=== PATIENT | male | born 1975 | race Caucasian/White ===

== ENCOUNTER 2016-07-23 20:33 | Emergency (ER) | payer OTHER ==
[~2016-07-23 20:33] MED LIST: BAYER ASPIRIN E81 M1 PO; LANTUS SOL100 UNITS/; NITROSTAT0.4 MG SL; NOVOLOG PE100 UNITS/ SC; OMEPRAZOLE20 MG PO; TOPROL XL50 MG PO
--- NOTE | 2016-07-23 23:08 | ED CLINICAL REPORT ---
Clinical Report - Physicians/Mid Levels [facility] [address] [place] [address] 07/23/2016 20:33 Patient: TESSIE CONRAD Time Seen: 22:13; initial patient contact, initial documentation, patient care assumed. Arrived- By private vehicle. Historian- patient. RETURN VISIT: recently seen in this ED by me. Seen now for the same problem as before. HISTORY OF PRESENT ILLNESS Chief Complaint: COUGH, SORE THROAT and SINUS PAIN. This started about 1 months ago and is still present. The illness is described as moderate. The patient has had a cough, a sore throat, nasal congestion, sinus pressure and sinus drainage. He has had a nasal discharge and ear pain. No fever. Additional history - No known contact with a sick individual. No recent travel. Similar symptoms previously: None. Recent medical care: The patient was seen recently at this facility in the emergency department. ( txed here by me, 07/16, dx bronchitis, took zpack, no better, no f/u). REVIEW OF SYSTEMS No vomiting or diarrhea. All systems otherwise negative, except as recorded above. PAST HISTORY See nurses notes. PROBLEMS: Asthma. Unstable Angina. Influenza. URI. Depression. Sinusitis. Gastroesophageal Reflux. Diabetes Mellitus. --21:50 Aleks Kirby, RJozefN. ADDITIONAL SURGERIES: Skin growth removed on scalp. --21:50 Aleks Kirby R.N. SOCIAL HISTORY Heavy tobacco smoker. Occasional alcohol use. History of occasional drug use: marijuana. No recent travel. Is a local resident. FAMILY HISTORY Negative. ADDITIONAL NOTES The nursing notes have been reviewed with agreement regarding the chief complaint, HPI, ROS, PMH and patient medications and allergies. PHYSICAL EXAM Vital Signs: 07/23/2016 21:45 BP: 127/75. HR: 85. RR: 21. O2 saturation: 99%. Temp: 97.8 F. Pain level now: 9/10. Have been reviewed as normal and appear to be correct. Blood pressure normal. Heart rate normal. Respiratory rate normal. Temperature normal. Oxygen saturation normal. Appearance: Alert. No acute distress. Eyes: Pupils equal, round and reactive to light. Eyes normal inspection. ENT: Ears normal. Nose normal. Pharynx normal. Uvula midline. Neck: Normal inspection. Neck supple. CVS: Normal heart rate and rhythm. Heart sounds normal. Pulses normal. Respiratory: No respiratory distress. Breath sounds normal. Back: Normal inspection. Skin: Skin warm and dry. Normal skin color. No rash. Normal skin turgor. Extremities: Extremities exhibit normal ROM. No lower extremity edema. Neuro: Oriented X 3. No motor deficit. No sensory deficit. LABS, X-RAYS, AND EKG Chest X-ray: Normal Chest X-Ray. (and reviewed by dr brewer). The X-rays were interpreted contemporaneously by me. Laboratory Tests: Rapid Influenza Screen: (CLAUDIA: 07/23/2016 22:25) ( [id number] 07/23/2016 22:59) Final results SPECIMEN DESCRIPTION: NOSE Test Result Flag Units (Reference) RAPID INFLUENZA SCREEN CALLED TO: NA -- DATE: 07/23/16 INFLUENZA A: NEGATIVE SCREEN FOR INFLUENZA A INFLUENZA B: NEGATIVE SCREEN FOR INFLUENZA B . PROGRESS AND PROCEDURES Patient counseled in person regarding the patient's stable condition, test results, normal exam, normal evaluation and diagnosis. 23:08. Differential Diagnosis: Other possible considerations: flu, allergies, uri, sinusitis, bronchitis, pneumonia. Above considerations are based on history, physical exam, laboratory data and X-Ray data. Differential diagnosis was discussed with patient. Disposition: Discharged home in good and unchanged condition (23:08). Condition: good and stable. CLINICAL IMPRESSION Acute sinusitis. INSTRUCTIONS Drink plenty of fluids for the next 24 hours until better. Do not smoke. Warnings: GENERAL WARNINGS: Return or contact your physician immediately if your condition worsens or changes unexpectedly, if not improving as expected, or if other problems arise. Specifically return if problem worsens. Follow-up: Follow up with your doctor in about three days as needed. Call for an appointment. Summary of care provided to patient. Understanding of the discharge instructions verbalized by patient. (Electronically signed by Steff Fish A.R.N.P. 07/24/2016 11:54)
--- NOTE | 2016-07-23 23:09 | ED ORDER SUMMARY ---
..... Patient: TESSIE CONRAD OrderSheet [facility] VisitID: [id number] [address] [place] [address] 41y, M Registration Date/Time: 07/23/2016 ORDER SHEET Weight: 99.7 kg (stated) Allergies: Penicillins GENERAL ORDERS: Rapid Influenza Screen (Nasal Pharyngeal) (nose) Urgent (22:27 07/23/2016 HBivens A.R.N.P.) (Ack 22:29 LTapper) (23:04 Tosha R.N.) Chest 2V Urgent (22:41 07/23/2016 HBivens A.R.N.P.) (Ack 22:49 [facility] Electronic Engraver) (22:51 [facility]) Culture, Strep Screen Urgent (22:59 07/23/2016 [facility] Electronic Engraver verbal order read back to HBivens A.R.N.P.) (Cancelled: Other23:01 [facility] Electronic Engraver) MEDICATION ORDERS: IV FLUIDS: ORDER SHEET NOTES: [Electronically signed by Amie Dallas R.N. (23:34 07/23/2016)] [Electronically signed by Steff Fish.R.N.P. (11:54 07/24/2016)] [Electronically locked/signed by Amie Dallas R.N. (23:34 07/23/2016)]
--- NOTE | 2016-07-23 23:09 | ED NURSING NOTES ---
Clinical Report - Nurses [facility] [address] [place] [address] 07/23/2016 20:33 Patient: TESSIE CONRAD TRIAGE Triage time 21:45. Acuity: LEVEL 4. Chief Complaint: NASAL CONGESTION and COUGH (Sinus pain). 21:50. Alert. SEPSIS SCREEN: Sepsis Screen. Negative (no infection suspected/documented). JADE COMA SCORE: [place] Coma Scale: 15- eyes open spontaneously (4); best verbal response- oriented x 4 (5); best motor response- obeys commands (6). --21:50 Aleks Kirby R.N. 21:45 07/23/16. BP: 127/75. HR: 85. RR: 21. O2 saturation: 99%. Temp: 97.8 F (oral). Pain level now: 03/27. --21:50 Aleks Kirby R.N. Weight: 99.7 kg stated. Height/Length: 73 inches Per Patient. BMI: 29. --21:47 Aleks Kirby R.N. Medications Insulin Lantus Sliding Scale--40 Units. INSULIN NOVOLOG per sliding scale. --21:49 Aleks Kirby R.N. Omeprazole Oral 20 mg, daily. --21:49 Aleks Kirby R.N. Albuterol Sulfate Inhalation 2 puffs. --21:49 Aleks Kirby R.N. Allergies Penicillins. Definite Moderate(rash) --21:49 Aleks Kirby R.N. Medication/allergy information source: the patient. --21:51 Aleks Kirby R.N. History Arrived by private vehicle. Historian: patient. Onset. (1 months ago). ( Patient states he was seen here before for the same thing, has finished a Z-pack and is using an inhaler, not getting better). Treatment IT COMPLIANCE MANAGER: None. PAST MEDICAL HX: Last normal menstrual period now. SOCIAL HX: Current every day heavy tobacco smoker- less than 1 pack per day. History of occasional drug use: marijuana. No alcohol use. No infectious disease exposure. ABUSE ASSESSMENT: No report of abuse. FALL RISK ASSESSMENT: Fall risk assessment completed. No fall risk identified. NUTRITIONAL RISK ASSESSMENT: The nutritional risk assessment revealed no deficiencies. FUNCTIONAL ASSESSMENT: Functional assessment: no impairments noted. LEARNING NEEDS ASSESSMENT: The learning needs assessment revealed no barriers. SKIN INTEGRITY ASSESSMENT: Skin integrity risk assessment completed. No skin integrity risk identified. --21:50 Aleks Kirby R.N. PROBLEMS: Asthma. Unstable Angina. Influenza. URI. Depression. Sinusitis. Gastroesophageal Reflux. Diabetes Mellitus. --21:50 Aleks Kirby R.N. ADDITIONAL SURGERIES: Skin growth removed on scalp. --21:50 Aleks Kirby R.N. Interventions ID band on patient. To treatment room. --21:50 Aleks Kirby R.N. PHYSICAL ASSESSMENT Ambulatory to room. GENERAL / NEURO / PSYCH: Alert. Oriented X 4. RESPIRATORY: Cough (for over a month). ( "Sinuses are plugged"). GI / : Abdomen soft and nontender. SKIN: Skin intact. Skin is warm and dry. Normal skin turgor. --22:14 Aleks Julio R.N. NURSING PROGRESS NOTES Patient gowned. Reassurance given. Patient identifiers checked. Call light placed in reach. Side rails up x 1. Patient ready for evaluation- chart flagged and ED physician notified. --22:14 Aleks Julio R.N. 22:25. Checked patient name, birthdate and medical record number: patient confirmed. Flu swab obtained by RN via nasal pharyngeal swab. Labeled in the presence of the patient and sent to lab. Patient ID band checked for patient name, birthdate and medical record number: patient confirmed. Throat swab obtained for rapid strep; labeled in the presence of the patient and sent to lab. --23:06 Aleks Julio R.N. Care transferred and report received (from Aleks Cummins, RN). --23:07 Amie Dallas R.N. DISPOSITION / DISCHARGE Departure time: 2316. Condition at departure: unchanged. No learning barriers present. Discharge instructions provided and reviewed with the patient. Patient verbalized understanding. Written instructions provided in Belarusian. The patient was discharged by the nurse practitioner. He was discharged home and accompanied by family. He left the Emergency Department ambulatory and via private vehicle. Patient driving. Medication list reviewed and validated with the patient. --23:34 Amie Dallas R.N. 23:17 07/23/16. BP: deferred. HR: deferred. RR: deferred. O2 saturation: deferred. Temp: deferred. Pain level now deferred. --23:34 Amie Dallas R.N. Locked/Released at 07/23/2016 23:34 by Amie Dallas R.N.
--- NOTE | 2016-07-23 23:09 | ED ORDER SUMMARY ---
..... Patient: TESSIE CONRAD OrderSheet [facility] VisitID: [id number] [address] [place] [address] 41y, M Registration Date/Time: 07/23/2016 ORDER SHEET Weight: 99.7 kg (stated) Allergies: Penicillins GENERAL ORDERS: Rapid Influenza Screen (Nasal Pharyngeal) (nose) Urgent (22:27 07/23/2016 HBivens A.R.N.P.) (Ack 22:29 LTapper) (23:04 Tosha R.N.) Chest 2V Urgent (22:41 07/23/2016 HBivens A.R.N.P.) (Ack 22:49 [facility] ER Director Financial Planning) (22:51 [facility]) Culture, Strep Screen Urgent (22:59 07/23/2016 [facility] ER Director Financial Planning verbal order read back to HBivens A.R.N.P.) (Cancelled: Other23:01 [facility] ER Director Financial Planning) MEDICATION ORDERS: IV FLUIDS: ORDER SHEET NOTES: [Electronically signed by Amie Dallas R.N. (23:34 07/23/2016)] [Electronically signed by Steff Fish.R.N.P. (11:54 07/24/2016)] [Electronically locked/signed by Amie Dallas R.N. (23:34 07/23/2016)]
--- NOTE | 2016-07-23 23:09 | ED NURSING NOTES ---
Clinical Report - Nurses [facility] [address] [place] [address] 07/23/2016 20:33 Patient: TESSIE CONRAD TRIAGE Triage time 21:45. Acuity: LEVEL 4. Chief Complaint: NASAL CONGESTION and COUGH (Sinus pain). 21:50. Alert. SEPSIS SCREEN: Sepsis Screen. Negative (no infection suspected/documented). JADE COMA SCORE: [place] Coma Scale: 15- eyes open spontaneously (4); best verbal response- oriented x 4 (5); best motor response- obeys commands (6). --21:50 Aleks Kirby R.N. 21:45 07/23/16. BP: 127/75. HR: 85. RR: 21. O2 saturation: 99%. Temp: 97.8 F (oral). Pain level now: 03/27. --21:50 Aleks Kirby R.N. Weight: 99.7 kg stated. Height/Length: 73 inches Per Patient. BMI: 29. --21:47 Aleks Kirby R.N. Medications Insulin Lantus Sliding Scale--40 Units. INSULIN NOVOLOG per sliding scale. --21:49 Aleks Kirby R.N. Omeprazole Oral 20 mg, daily. --21:49 Aleks Kirby R.N. Albuterol Sulfate Inhalation 2 puffs. --21:49 Aleks Kirby R.N. Allergies Penicillins. Definite Moderate(rash) --21:49 Aleks Kirby R.N. Medication/allergy information source: the patient. --21:51 Aleks Kirby R.N. History Arrived by private vehicle. Historian: patient. Onset. (1 months ago). ( Patient states he was seen here before for the same thing, has finished a Z-pack and is using an inhaler, not getting better). Treatment KETTLE COORDINATOR: None. PAST MEDICAL HX: Last normal menstrual period now. SOCIAL HX: Current every day heavy tobacco smoker- less than 1 pack per day. History of occasional drug use: marijuana. No alcohol use. No infectious disease exposure. ABUSE ASSESSMENT: No report of abuse. FALL RISK ASSESSMENT: Fall risk assessment completed. No fall risk identified. NUTRITIONAL RISK ASSESSMENT: The nutritional risk assessment revealed no deficiencies. FUNCTIONAL ASSESSMENT: Functional assessment: no impairments noted. LEARNING NEEDS ASSESSMENT: The learning needs assessment revealed no barriers. SKIN INTEGRITY ASSESSMENT: Skin integrity risk assessment completed. No skin integrity risk identified. --21:50 Aleks Kirby R.N. PROBLEMS: Asthma. Unstable Angina. Influenza. URI. Depression. Sinusitis. Gastroesophageal Reflux. Diabetes Mellitus. --21:50 Aleks Kirby R.N. ADDITIONAL SURGERIES: Skin growth removed on scalp. --21:50 Aleks Kirby R.N. Interventions ID band on patient. To treatment room. --21:50 Aleks Kirby R.N. PHYSICAL ASSESSMENT Ambulatory to room. GENERAL / NEURO / PSYCH: Alert. Oriented X 4. RESPIRATORY: Cough (for over a month). ( "Sinuses are plugged"). GI / : Abdomen soft and nontender. SKIN: Skin intact. Skin is warm and dry. Normal skin turgor. --22:14 Aleks Julio R.N. NURSING PROGRESS NOTES Patient gowned. Reassurance given. Patient identifiers checked. Call light placed in reach. Side rails up x 1. Patient ready for evaluation- chart flagged and ED physician notified. --22:14 Aleks Julio R.N. 22:25. Checked patient name, birthdate and medical record number: patient confirmed. Flu swab obtained by RN via nasal pharyngeal swab. Labeled in the presence of the patient and sent to lab. Patient ID band checked for patient name, birthdate and medical record number: patient confirmed. Throat swab obtained for rapid strep; labeled in the presence of the patient and sent to lab. --23:06 Aleks Julio R.N. Care transferred and report received (from Aleks Cummins, RN). --23:07 Amie Dallas R.N. DISPOSITION / DISCHARGE Departure time: 2316. Condition at departure: unchanged. No learning barriers present. Discharge instructions provided and reviewed with the patient. Patient verbalized understanding. Written instructions provided in Slovak. The patient was discharged by the nurse practitioner. He was discharged home and accompanied by family. He left the Emergency Department ambulatory and via private vehicle. Patient driving. Medication list reviewed and validated with the patient. --23:34 Amie Dallas R.N. 23:17 07/23/16. BP: deferred. HR: deferred. RR: deferred. O2 saturation: deferred. Temp: deferred. Pain level now deferred. --23:34 Amie Dallas R.N. Locked/Released at 07/23/2016 23:34 by Amie Dallas R.N.
--- NOTE | 2016-07-23 23:37 | DIAGNOSTIC IMAGING REPORT ---
PROCEDURE: XR CHEST 2 VIEW INDICATION: COUGH TECHNIQUE: PA and lateral views. COMPARISON: Para chest x-ray 05/20/2015. FINDINGS: Lungs are clear. Heart and mediastinum are normal. Thorax is normal. IMPRESSION: 1. Negative chest.
--- NOTE | 2016-07-24 11:55 | ED DISCHARGE INSTRUCTIONS ---
Patient: TESSIE CONRAD General Instructions [facility] VisitID: [id number] [place] [address] 41y, M Registration Date/Time: 07/23/2016 Acute sinusitis. INSTRUCTIONS Drink plenty of fluids for the next 24 hours until better. Do not smoke. Warnings: GENERAL WARNINGS: Return or contact your physician immediately if your condition worsens or changes unexpectedly, if not improving as expected, or if other problems arise. Specifically return if problem worsens. Follow-up: Follow up with your doctor in about three days as needed. Call for an appointment. Summary of care provided to patient. Understanding of the discharge instructions verbalized by patient. ADDITIONAL INFORMATION Viral Respiratory Illness [Adult] You have an Upper Respiratory Illness (URI) caused by a virus. This illness is contagious during the first few days. It is spread through the air by coughing and sneezing or by direct contact (touching the sick person and then touching your own eyes, nose or mouth). Most viral illnesses go away within 7-10 days with rest and simple home remedies. Sometimes, the illness may last for several weeks. Antibiotics will not kill a virus and are generally not prescribed for this condition. Home Care: 1) If symptoms are severe, rest at home for the first 2-3 days. When you resume activity, don't let yourself get too tired. 2) Avoid being exposed to cigarette smoke (yours or others). 3) Tylenol (acetaminophen) or ibuprofen (Advil, Motrin) will help fever, muscle aching and headache. (Persons under 18 with fever should not take aspirin since this may cause liver damage.) 4) Your appetite may be poor, so a light diet is fine. Avoid dehydration by drinking 6-8 glasses of fluids per day (water, soft drinks, juices, tea, soup). Extra fluids will help loosen secretions in the nose and lungs. 5) Gvln-gme-tmrsnnb cold medicines will not shorten the length of time youre sick, but they may be helpful for the following symptoms: cough (Robitussin DM); sore throat (Chloraseptic lozenges or spray); nasal and sinus congestion (Actifed, Sudafed, Chlortrimeton). Follow Up with your doctor or as advised if you dont improve over the next week. Get Prompt Medical Attention if any of the following occur: -- Cough with lots of colored sputum (mucus) or blood in your sputum -- Chest pain, shortness of breath, wheezing or have trouble breathing -- Severe headache; face, neck or ear pain -- Fever over 100.4 F (38.0 C) for more than three days -- You cant swallow due to throat pain You have been given the following additional information: Uri, Viral, No Abx (Adult) (Electronically signed by Steff Fish A.R.N.P. 07/24/2016 11:54)
--- NOTE | 2016-07-24 11:55 | ED MAR SUMMARY ---
..... Medication Administration Record [facility] [address], [place] [id number] Patient: TESSIE CONRAD Visit ID: [id number] 41y, M Weight: 99.7 kg Height/Length: 73 in BMI: 29 ALLERGIES: Penicillins
--- NOTE | 2016-07-24 11:55 | ED MED RECONCILIATION SUMMARY ---
Patient: TESSIE CONRAD Medication Reconciliation Report [facility] VisitID: [id number] [address] [place] [address] 41y, M Registration Date/Time: 07/23/2016 Weight: 99.7 kg Height/Length: 73 in. BMI: 29.0 ALLERGIES: Penicillins The patient's Home Medications are listed below: THE FOLLOWING MEDICATIONS NEED TO BE RECONCILED: Albuterol Sulfate Inhalation 2 puffs Insulin Lantus Sliding Scale--40 Units INSULIN NOVOLOG per sliding scale Omeprazole Oral 20 mg, daily The source(s) of the original Home Medication information: patient The following Medications were given to the patient in the Emergency Department: None. The following Medications were prescribed to the patient: None.
--- NOTE | 2016-07-24 11:55 | ED MAR SUMMARY ---
..... Medication Administration Record [facility] [address] [place], [place] [id number] Patient: TESSIE CONRAD Visit ID: [id number] 41y, M Weight: 99.7 kg Height/Length: 73 in BMI: 29 ALLERGIES: Penicillins
--- NOTE | 2016-07-24 11:55 | ED MED RECONCILIATION SUMMARY ---
Patient: TESSIE CONRAD Medication Reconciliation Report [facility] VisitID: [id number] [address] [place] [address] 41y, M Registration Date/Time: 07/23/2016 Weight: 99.7 kg Height/Length: 73 in. BMI: 29.0 ALLERGIES: Penicillins The patient's Home Medications are listed below: THE FOLLOWING MEDICATIONS NEED TO BE RECONCILED: Albuterol Sulfate Inhalation 2 puffs Insulin Lantus Sliding Scale--40 Units INSULIN NOVOLOG per sliding scale Omeprazole Oral 20 mg, daily The source(s) of the original Home Medication information: patient The following Medications were given to the patient in the Emergency Department: None. The following Medications were prescribed to the patient: None.
== END 2016-07-23 23:17 | disposition home or self-care (01) ==
LOC: ED SRH 20:33
DX: J01.90 Acute sinusitis, unspecified (principal); K21.9 Gastro-esophageal reflux disease without esophagitis; J45.909 Unspecified asthma, uncomplicated; E11.9 Type 2 diabetes mellitus without complications; Z79.4 Long term (current) use of insulin; Z79.51 Long term (current) use of inhaled steroids; Z79.899 Other long term (current) drug therapy; F17.210 Nicotine dependence, cigarettes, uncomplicated; Z88.0 Allergy status to penicillin
CPT/HCPCS: 91400

== ENCOUNTER 2016-07-30 05:39 | Emergency (ER) | payer OTHER ==
--- NOTE | 2016-07-30 07:17 | ED CLINICAL REPORT ---
Clinical Report - Physicians/Mid Levels [facility] [address] [place] [address] 07/30/2016 5:39 Patient: TESSIE CONRAD Time Seen: 06:00. Arrived- By private vehicle. Historian- patient. HISTORY OF PRESENT ILLNESS Chief Complaint: VOMITING. This started several days ago; vomits at the end of coughing episodes and is still present. The patient has had vomiting (12 times yesterday). He has had diarrhea and contact with a sick individual. No black stools, bloody stools, flank pain or history of possible bad food exposure. Last bowel movement: recently. (Last BM yesterday - diarrhea x 10 times. Family member ill with GI symptoms Using albuterol 1 puff,). Recent medical care: The patient was seen recently by a health care provider. ( 7 visits). REVIEW OF SYSTEMS No fever, difficulty with urination, chest pain, difficulty breathing or excessive urination. No skin rash. He has had a headache (sinus tenderness). He has had a moderate nonproductive cough. PAST HISTORY PCP: CHRIS Davis Ops: None Hosp; [place] 2013 Illness: CAD, Asthma,. SOCIAL HISTORY Current every day smoker. ADDITIONAL NOTES The nursing notes have been reviewed. PHYSICAL EXAM Vital Signs: 07/30/2016 07:43 BP: 119/67. HR: 87. RR: 18. O2 saturation: 97%. Temp: 98.9 F. Pain level now: 0/10. 07/30/2016 05:45 BP: 133/84. HR: 78. RR: 18. O2 saturation: 99%. Temp: 98 F. Appearance: Alert. No acute distress. (With moderate coughing epidodes). Eyes: Eyes normal inspection. ENT: Pharynx normal. (Mild diffuse sinus tenderness). Neck: Normal inspection. CVS: Heart sounds normal. Respiratory: No respiratory distress. Moderate bilateral wheezes diffusely. No accessory muscle use or decreased air movement. Abdomen: Soft and nontender. Back: Normal inspection. Skin: Skin warm and dry. No rash. Extremities: Extremities exhibit normal ROM. No lower extremity edema. Neuro: No alteration in mental status. PROGRESS AND PROCEDURES Course of Care: Following prednisone, albuterol HHN x 2 and Zofran he feels much better. His coughing is less and his vomiting has stopped. He is still moderately wheezy. His vomiting is made worse but coughing but since he has diarrhea he also could have an element of gastroenteritis. His sinus symptoms are pressure related rather than bacterial infection related. Disposition: Discharged. Condition: stable. CLINICAL IMPRESSION Bronchitis. Asthma with an acute exacerbation. INSTRUCTIONS (INHALER INSTRUCTIONS [given] SINUS PRESSURE AFRIN NASAL SPRAY X 3 DAYS, SUDAFED X 10, POSSIBLY NASAL STEROID THIS COUGH COULD CONTINUE FOR 6 WEEKS.). Prescription Medications: Zofran 4 mg: Take 1 orally every six hours as needed for nausea/vomiting. Dispense ten (10). No refills. Substitution is permissible. Albuterol HFA oral inhaler: inhale 4 puffs via spacer every 4 hours as needed. No refill. Nasacort nasal spray: 2 sprays in each nostril once daily as needed for allergies. Dispense one (1) unit. No refills. Substitution is permissible. PHARMACIST MY SUBSTITUTE EQUIVALENT FOR NASACORT. Follow-up: Follow up with your doctor in seven days if not better. Understanding of the discharge instructions verbalized by patient and family. (Electronically signed by Arash Valenzuela MD 08/01/2016 23:14)
--- NOTE | 2016-07-30 07:17 | ED ORDER SUMMARY ---
..... Patient: TESSIE CONRAD OrderSheet [facility] VisitID: [id number] [address] [place] [address] 41y, M Registration Date/Time: 07/30/2016 ORDER SHEET Weight: 99.7 kg Allergies: Penicillins GENERAL ORDERS: - (GATORAIDE) (06:07 07/30/2016 Sabrina ALVAREZ) (6:35 DBeyer R.N.) MEDICATION ORDERS: Albuterol Neb Tx 5 mg (HHN) (06:06 07/30/2016 Sabrina ALVAREZ) (Ack 6:08 CHagerty ER [place]) (6:59 [facility]ty ER [place]) Prednisone PO 40 mg (NOW) (06:06 07/30/2016 Sabrina ALVAREZ) (6:22 DBeyer R.N.) Zofran ODT PO 4 mg (NOW) (06:07 07/30/2016 Sabrina ALVAREZ) (6:22 DBeyer R.N.) Albuterol Neb Tx 1 unit dose (NOW) (06:51 07/30/2016 DBeyer R.N. verbal order read back to Sabrina ALVAREZ) (6:59 [facility]ty ER [place]) IV FLUIDS: ORDER SHEET NOTES: [Electronically signed by Arina Leon R.N. (07:48 07/30/2016)] [Electronically signed by Arash Valenzuela MD (23:14 08/01/2016)] [Electronically locked/signed by Arina Leon R.N. (07:48 07/30/2016)]
--- NOTE | 2016-07-30 07:17 | ED CLINICAL REPORT ---
Clinical Report - Physicians/Mid Levels Formerly [facility] [address] [place] [address] 07/30/2016 5:39 Patient: TESSIE CONRAD Time Seen: 06:00. Arrived- By private vehicle. Historian- patient. HISTORY OF PRESENT ILLNESS Chief Complaint: VOMITING. This started several days ago; vomits at the end of coughing episodes and is still present. The patient has had vomiting (12 times yesterday). He has had diarrhea and contact with a sick individual. No black stools, bloody stools, flank pain or history of possible bad food exposure. Last bowel movement: recently. (Last BM yesterday - diarrhea x 10 times. Family member ill with GI symptoms Using albuterol 1 puff,). Recent medical care: The patient was seen recently by a health care provider. ( 7 visits). REVIEW OF SYSTEMS No fever, difficulty with urination, chest pain, difficulty breathing or excessive urination. No skin rash. He has had a headache (sinus tenderness). He has had a moderate nonproductive cough. PAST HISTORY PCP: CHRIS Davis Ops: None Hosp; [place] 2013 Illness: CAD, Asthma,. SOCIAL HISTORY Current every day smoker. ADDITIONAL NOTES The nursing notes have been reviewed. PHYSICAL EXAM Vital Signs: 07/30/2016 07:43 BP: 119/67. HR: 87. RR: 18. O2 saturation: 97%. Temp: 98.9 F. Pain level now: 0/10. 07/30/2016 05:45 BP: 133/84. HR: 78. RR: 18. O2 saturation: 99%. Temp: 98 F. Appearance: Alert. No acute distress. (With moderate coughing epidodes). Eyes: Eyes normal inspection. ENT: Pharynx normal. (Mild diffuse sinus tenderness). Neck: Normal inspection. CVS: Heart sounds normal. Respiratory: No respiratory distress. Moderate bilateral wheezes diffusely. No accessory muscle use or decreased air movement. Abdomen: Soft and nontender. Back: Normal inspection. Skin: Skin warm and dry. No rash. Extremities: Extremities exhibit normal ROM. No lower extremity edema. Neuro: No alteration in mental status. PROGRESS AND PROCEDURES Course of Care: Following prednisone, albuterol HHN x 2 and Zofran he feels much better. His coughing is less and his vomiting has stopped. He is still moderately wheezy. His vomiting is made worse but coughing but since he has diarrhea he also could have an element of gastroenteritis. His sinus symptoms are pressure related rather than bacterial infection related. Disposition: Discharged. Condition: stable. CLINICAL IMPRESSION Bronchitis. Asthma with an acute exacerbation. INSTRUCTIONS (INHALER INSTRUCTIONS [given] SINUS PRESSURE AFRIN NASAL SPRAY X 3 DAYS, SUDAFED X 10, POSSIBLY NASAL STEROID THIS COUGH COULD CONTINUE FOR 6 WEEKS.). Prescription Medications: Zofran 4 mg: Take 1 orally every six hours as needed for nausea/vomiting. Dispense ten (10). No refills. Substitution is permissible. Albuterol HFA oral inhaler: inhale 4 puffs via spacer every 4 hours as needed. No refill. Nasacort nasal spray: 2 sprays in each nostril once daily as needed for allergies. Dispense one (1) unit. No refills. Substitution is permissible. PHARMACIST MY SUBSTITUTE EQUIVALENT FOR NASACORT. Follow-up: Follow up with your doctor in seven days if not better. Understanding of the discharge instructions verbalized by patient and family. (Electronically signed by Arash Valenzuela MD 08/01/2016 23:14)
--- NOTE | 2016-07-30 07:17 | ED NURSING NOTES ---
Clinical Report - Nurses [facility] [address] [place] [address] 07/30/2016 5:39 [id number] Triage time 05:45 Jul 30 2016. Acuity: LEVEL 4. Chief Complaint: CHILLS and MUSCLE ACHES. --05:48 Richar Middleton R.N. 05:45 07/30/16. BP: 133/84. HR: 78. RR: 18. O2 saturation: 99%. Temp: 98 F. Pain level now 0/10. --05:48 Richar Middleton R.N. Weight: 99.7 kg. Height/Length: 73 inches. BMI: 29. --05:46 Richar Middleton R.N. Medications Albuterol Sulfate Inhalation 2 puffs. Insulin Lantus Sliding Scale--40 Units. INSULIN NOVOLOG per sliding scale. Omeprazole Oral 20 mg, daily. --05:46 Richar Middleton R.N. Allergies Penicillins. Definite Moderate(rash) --05:46 Richar Middleton R.N. History Onset. (1 months). He has had weakness and a cough. Treatment MATERIAL LISTER: None. --05:48 Richar Middleton R.N. PAST MEDICAL HX: Diabetes mellitus. SOCIAL HX: Heavy tobacco smoker. No alcohol use or drug use. --05:48 Richar Middleton R.N. PROBLEMS: Skin Rash. Bronchospasm. Asthma. Bronchitis. Heart attack. Chest Pain. Unstable Angina. Tendonitis. Influenza. URI. Depression. Dental Pain. Tinea Corporis. Back Pain. Gastroesophageal Reflux. Tetanus Status. Acid reflex. Diabetes Mellitus. Immunizations. --05:48 Richar Middleton R.N. Assessment The patient states feels the same. --05:48 Richar Middleton R.N. Interventions ID and allergy band on patient. --05:48 Richar Middleton R.N. PHYSICAL ASSESSMENT GENERAL / NEURO / PSYCH: Alert. Oriented X 4. Appears in no acute distress. HEENT: Pupils equal, round and reactive to light. No facial asymmetry noted. Mucous membranes are pink. RESPIRATORY: Respirations not labored. Crackles present. GI / : ( emesis). Abdomen soft. SKIN: Skin is warm and dry. --05:49 Richar Middleton R.N. NURSING PROGRESS NOTES 06:22 07/30/2016 Prednisone PO 40 mg given. Allergies verified and confirmed 5 rights. --06:22 Richar Middleton R.N. 06:22 07/30/2016 Zofran ODT (Ondansetron) PO 4 mg given. Allergies verified and confirmed 5 rights. --06:22 Richar Middleton R.N. 06:33 07/30/2016 Albuterol Neb TX Nebulizer 1 unit dose given. Given by the respiratory therapist. Allergies verified and confirmed 5 rights. --06:59 Florentin Guillermo, ER Ginner 06:59 07/30/2016 Albuterol Neb TX Nebulizer 1 unit dose given. Given by the respiratory therapist. Allergies verified and confirmed 5 rights. --06:59 Florentin Guillermo, ER Ginner Care transferred and report given (report to arina). --07:00 Richar Middleton R.N. Monitoring of patient in place. Patient gowned. Reassurance given. Two patient identifiers checked. Side rails up x 1. Bed placed in lowest position. --07:01 Richar Middleton R.N. ( Pt given a second neb tx, pt is alert and oriented x 4). --07:01 Richar Middletno R.N. 07:09 07/30/16. Care transferred and report received. --07:09 Arina Leon R.N. DISPOSITION / DISCHARGE Departure time: 07. Condition at departure: improved. No learning barriers present. Reviewed warnings (your cough could continue for 6 weeks). Reviewed medication(s) information. Prescription(s) given to the patient. Reviewed referral to family practice for followup. Verbalized understanding. The patient was discharged home and accompanied by director strategy. He left the Emergency Department ambulatory and via private vehicle. Automobile Accessories Installer driving. --07:45 Arina Leon R.N. 07:43 07/30/16. BP: 119/67. HR: 87. RR: 18. O2 saturation: 97%. Temp: 98.9 F. Pain level now: 0/10. --07:45 Arina Leon R.N. Locked/Released at 07/30/2016 7:48 by Arina Leon R.N.
--- NOTE | 2016-07-30 07:17 | ED ORDER SUMMARY ---
..... Patient: TESSIE CONRAD OrderSheet [facility] VisitID: [id number] [address] [place] [address] 41y, M Registration Date/Time: 07/30/2016 ORDER SHEET Weight: 99.7 kg Allergies: Penicillins GENERAL ORDERS: - (GATORAIDE) (06:07 07/30/2016 Sabrina ALVAREZ) (6:35 DBeyer R.N.) MEDICATION ORDERS: Albuterol Neb Tx 5 mg (HHN) (06:06 07/30/2016 Sabrina ALVAREZ) (Ack 6:08 CHagerty ER Geothermal Installer) (6:59 CHagerty ER Geothermal Installer) Prednisone PO 40 mg (NOW) (06:06 07/30/2016 Sabrina ALVAREZ) (6:22 DBeyer R.N.) Zofran ODT PO 4 mg (NOW) (06:07 07/30/2016 Sabrina ALVAREZ) (6:22 DBeyer R.N.) Albuterol Neb Tx 1 unit dose (NOW) (06:51 07/30/2016 DBeyer R.N. verbal order read back to Sabrina ALVAREZ) (6:59 CHagerty ER Geothermal Installer) IV FLUIDS: ORDER SHEET NOTES: [Electronically signed by Arina Leon R.N. (07:48 07/30/2016)] [Electronically signed by Arash Valenzuela MD (23:14 08/01/2016)] [Electronically locked/signed by Arina Leon R.N. (07:48 07/30/2016)]
--- NOTE | 2016-07-30 07:17 | ED NURSING NOTES ---
Clinical Report - Nurses [facility] [address] [place] [address] 07/30/2016 5:39 [id number] TRI[facility] Triage time 05:45 Jul 30 2016. Acuity: LEVEL 4. Chief Complaint: CHILLS and MUSCLE ACHES. --05:48 Richar Middleton R.N. 05:45 07/30/16. BP: 133/84. HR: 78. RR: 18. O2 saturation: 99%. Temp: 98 F. Pain level now 0/10. --05:48 Richar Middleton R.N. Weight: 99.7 kg. Height/Length: 73 inches. BMI: 29. --05:46 Richar Middleton R.N. Medications Albuterol Sulfate Inhalation 2 puffs. Insulin Lantus Sliding Scale--40 Units. INSULIN NOVOLOG per sliding scale. Omeprazole Oral 20 mg, daily. --05:46 Richar Middleton R.N. Allergies Penicillins. Definite Moderate(rash) --05:46 Richar Middleton R.N. History Onset. (1 months). He has had weakness and a cough. Treatment ORAL PATHOLOGIST: None. --05:48 Richar Middleton R.N. PAST MEDICAL HX: Diabetes mellitus. SOCIAL HX: Heavy tobacco smoker. No alcohol use or drug use. --05:48 Richar Middleton R.N. PROBLEMS: Skin Rash. Bronchospasm. Asthma. Bronchitis. Heart attack. Chest Pain. Unstable Angina. Tendonitis. Influenza. URI. Depression. Dental Pain. Tinea Corporis. Back Pain. Gastroesophageal Reflux. Tetanus Status. Acid reflex. Diabetes Mellitus. Immunizations. --05:48 Richar Middleton R.N. Assessment The patient states feels the same. --05:48 Richar Middleton R.N. Interventions ID and allergy band on patient. --05:48 Richar Middleton R.N. PHYSICAL ASSESSMENT GENERAL / NEURO / PSYCH: Alert. Oriented X 4. Appears in no acute distress. HEENT: Pupils equal, round and reactive to light. No facial asymmetry noted. Mucous membranes are pink. RESPIRATORY: Respirations not labored. Crackles present. GI / : ( emesis). Abdomen soft. SKIN: Skin is warm and dry. --05:49 Richar Middleton R.N. NURSING PROGRESS NOTES 06:22 07/30/2016 Prednisone PO 40 mg given. Allergies verified and confirmed 5 rights. --06:22 Richar Middleton R.N. 06:22 07/30/2016 Zofran ODT (Ondansetron) PO 4 mg given. Allergies verified and confirmed 5 rights. --06:22 Richar Middleton R.N. 06:33 07/30/2016 Albuterol Neb TX Nebulizer 1 unit dose given. Given by the respiratory therapist. Allergies verified and confirmed 5 rights. --06:59 Florentin Guillermo, ER Clinical Services Consultant 06:59 07/30/2016 Albuterol Neb TX Nebulizer 1 unit dose given. Given by the respiratory therapist. Allergies verified and confirmed 5 rights. --06:59 Florentin Guillermo, ER Clinical Services Consultant Care transferred and report given (report to arina). --07:00 Richar Middleton R.N. Monitoring of patient in place. Patient gowned. Reassurance given. Two patient identifiers checked. Side rails up x 1. Bed placed in lowest position. --07:01 Richar Middleton R.N. ( Pt given a second neb tx, pt is alert and oriented x 4). --07:01 Richar Middleton R.N. 07:09 07/30/16. Care transferred and report received. --07:09 Arina Leon R.N. DISPOSITION / DISCHARGE Departure time: 07. Condition at departure: improved. No learning barriers present. Reviewed warnings (your cough could continue for 6 weeks). Reviewed medication(s) information. Prescription(s) given to the patient. Reviewed referral to family practice for followup. Verbalized understanding. The patient was discharged home and accompanied by home service director. He left the Emergency Department ambulatory and via private vehicle. Groundskeeper Porter driving. --07:45 Arina Leon R.N. 07:43 07/30/16. BP: 119/67. HR: 87. RR: 18. O2 saturation: 97%. Temp: 98.9 F. Pain level now: 0/10. --07:45 Arina Leon R.N. Locked/Released at 07/30/2016 7:48 by Arina Leon R.N.
--- NOTE | 2016-08-01 23:15 | ED MED RECONCILIATION SUMMARY ---
Patient: TESSIE CONRAD Medication Reconciliation Report [facility] VisitID: [id number] [address] [place] [address] 41y, M Registration Date/Time: 07/30/2016 Weight: 99.7 kg Height/Length: 73 in. BMI: 29.0 ALLERGIES: Penicillins The patient's Home Medications are listed below: THE FOLLOWING MEDICATIONS NEED TO BE RECONCILED: Albuterol Sulfate Inhalation 2 puffs Insulin Lantus Sliding Scale--40 Units INSULIN NOVOLOG per sliding scale Omeprazole Oral 20 mg, daily The source(s) of the original Home Medication information: Not obtained. The following Medications were given to the patient in the Emergency Department: Prednisone [PO] PO 40 mg, administered: 07/30/2016 6:22:00 AM Zofran ODT [PO] PO 4 mg, administered: 07/30/2016 6:22:00 AM Albuterol [Neb Tx] Neb TX 1 unit dose, administered: 07/30/2016 6:33:00 AM Albuterol [Neb Tx] Neb TX 1 unit dose, administered: 07/30/2016 6:59:00 AM The following Medications were prescribed to the patient: Zofran 4 mg: Take 1 orally every six hours as needed for nausea/vomiting. Dispense ten (10). No refills. Substitution is permissible. -- Arash Valenzuela MD Albuterol HFA oral inhaler: inhale 4 puffs via spacer every 4 hours as needed. No refill. -- Arash Valenzuela MD Nasacort nasal spray: 2 sprays in each nostril once daily as needed for allergies. Dispense one (1) unit. No refills. Substitution is permissible. -- Arash Valenzuela MD PHARMACIST MY [employer] EQUIVALENT FOR NASACORT. -- Arash Valenzuela MD
--- NOTE | 2016-08-01 23:15 | ED MED RECONCILIATION SUMMARY ---
Patient: TESSIE CONRAD Medication Reconciliation Report [facility] VisitID: [id number] [address] [place] [address] 41y, M Registration Date/Time: 07/30/2016 Weight: 99.7 kg Height/Length: 73 in. BMI: 29.0 ALLERGIES: Penicillins The patient's Home Medications are listed below: THE FOLLOWING MEDICATIONS NEED TO BE RECONCILED: Albuterol Sulfate Inhalation 2 puffs Insulin Lantus Sliding Scale--40 Units INSULIN NOVOLOG per sliding scale Omeprazole Oral 20 mg, daily The source(s) of the original Home Medication information: Not obtained. The following Medications were given to the patient in the Emergency Department: Prednisone [PO] PO 40 mg, administered: 07/30/2016 6:22:00 AM Zofran ODT [PO] PO 4 mg, administered: 07/30/2016 6:22:00 AM Albuterol [Neb Tx] Neb TX 1 unit dose, administered: 07/30/2016 6:33:00 AM Albuterol [Neb Tx] Neb TX 1 unit dose, administered: 07/30/2016 6:59:00 AM The following Medications were prescribed to the patient: Zofran 4 mg: Take 1 orally every six hours as needed for nausea/vomiting. Dispense ten (10). No refills. Substitution is permissible. -- Arash Valenzuela MD Albuterol HFA oral inhaler: inhale 4 puffs via spacer every 4 hours as needed. No refill. -- Arash Valenzuela MD Nasacort nasal spray: 2 sprays in each nostril once daily as needed for allergies. Dispense one (1) unit. No refills. Substitution is permissible. -- Arash Valenzuela MD PHARMACIST MY [employer] EQUIVALENT FOR NASACORT. -- Arash Valenzuela MD
--- NOTE | 2016-08-01 23:15 | ED MAR SUMMARY ---
..... Medication Administration Record [facility] [address] [place] [address] Patient: TESSEI CONRAD Visit ID: [id number] 41y, M Weight: 99.7 kg Height/Length: 73 in BMI: 29 ALLERGIES: Penicillins Given 06:22 07/30/2016 Richar Middleton R.N. Medication Administered: PREDNISONE [PO], Dose: 40 mg PO. Medication Ordered: Prednisone PO 40 mg (NOW). Given 06:22 07/30/2016 Richar Middleton RJozefNJozef Medication Administered: ZOFRAN ODT [PO] (ONDANSETRON), Dose: 4 mg PO. Medication Ordered: Zofran ODT PO 4 mg (NOW). Given 06:33 07/30/2016 Florentin Guillermo, ER Tank Stave Assembler Medication Administered: ALBUTEROL [NEB TX], Dose: 1 unit dose Nebulizer Neb TX. Medication Ordered: Albuterol Neb Tx 5 mg (N). Given 06:59 07/30/2016 Florentin Guillermo, ER Tank Stave Assembler Medication Administered: ALBUTEROL [NEB TX], Dose: 1 unit dose Nebulizer Neb TX. Medication Ordered: Albuterol Neb Tx 1 unit dose (NOW).
--- NOTE | 2016-08-01 23:15 | ED DISCHARGE INSTRUCTIONS ---
Patient: TESSIE CONRAD General Instructions [facility] VisitID: [id number] [place] [address] 41y, M Registration Date/Time: 07/30/2016 Bronchitis. Asthma with an acute exacerbation. INSTRUCTIONS (INHALER INSTRUCTIONS [given] SINUS PRESSURE AFRIN NASAL SPRAY X 3 DAYS, SUDAFED X 10, POSSIBLY NASAL STEROID THIS COUGH COULD CONTINUE FOR 6 WEEKS.). Prescription Medications: Zofran 4 mg: Take 1 orally every six hours as needed for nausea/vomiting. Dispense ten (10). No refills. Substitution is permissible. Albuterol HFA oral inhaler: inhale 4 puffs via spacer every 4 hours as needed. No refill. Nasacort nasal spray: 2 sprays in each nostril once daily as needed for allergies. Dispense one (1) unit. No refills. Substitution is permissible. PHARMACIST MY SUBSTITUTE EQUIVALENT FOR NASACORT. Follow-up: Follow up with your doctor in seven days if not better. Understanding of the discharge instructions verbalized by patient and family. ADDITIONAL INFORMATION Bronchitis, Viral (Adult: No Abx) You have a viral bronchitis. This illness is contagious during the first few days and is spread through the air by coughing and sneezing, or by direct contact (touching the sick person and then touching your own eyes, nose, or mouth). Most viral illnesses resolve within 10-14 days with rest and simple home remedies, although they may sometimes last for several weeks. Antibiotics will not kill a virus and are generally not prescribed for this condition. Home Care: If symptoms are severe, rest at home for the first 2-3 days. When resuming activity, don't let yourself become overly tired. Do not smoke and avoid the smoke of others. You may use acetaminophen (Tylenol) or ibuprofen (Motrin, Advil) to control fever or pain, unless another pain medicine was prescribed. [NOTE: If you have chronic liver or kidney disease or ever had a stomach ulcer or GI bleeding, talk with your doctor before using these medicines.] (Aspirin should never be used in anyone under 18 years of age who is ill with a fever. It may cause severe liver damage.) Your appetite may be poor so a light diet is fine. Avoid dehydration by drinking 6-8 glasses of fluids per day (water, sport drinks such as Gatorade, juices, tea, soup, etc.). Extra fluids will help loosen secretions in the nose and lung. Ihar-zfz-rrzbvjt cold medicines will not shorten the length of the illness, but may be helpful for cough (Robitussin DM), sore throat (Chloraseptic lozenges or spray), nasal and sinus congestion (Actifed or Sudafed). [NOTE: Do not use decongestants if you have high blood pressure.] Follow Up with your doctor or as directed by our staff if you are not improving over the next week. NOTE: If you are age 65 or older, or if you have chronic asthma or COPD, we recommend a PNEUMOCOCCAL VACCINATION every five years and a yearly INFLUENZAVACCINATION (FLU-SHOT) every . Ask your doctor about this. If you had an X-ray, a radiologist will review it. You will be notified of any new findings that may affect your care.] Get Prompt Medical Attention if any of the following occur: Fever over 100.4F (38.0C) for more than three days Trouble breathing, wheezing or pain with breathing Coughing up blood or increased amounts of colored sputum Weakness, drowsiness, headache, facial pain, ear pain or a stiff neck Bronchitis With Wheezing (Viral Or Bacterial: Adult) Bronchitis is an infection of the air passages. It often occurs during the common cold and is usually caused by a virus. Symptoms include cough with mucus (phlegm) and low-grade fever. If there is a lot of inflammation, air flow is restricted. The air passages may also go into spasm, especially if you are an asthmatic. This causes wheezing and difficulty breathing even in persons who do not have asthma. Bronchitis usually lasts 7-14 days. The wheezing should improve with treatment during the first week. An inhaler is often prescribed to relax the air passages and stop wheezing. Antibiotics will be prescribed if your doctor thinks there is also a secondary bacterial infection. Home Care: If symptoms are severe, rest at home for the first 2-3 days. When resuming activity, don't let yourself become overly tired. Do not smoke and avoid exposure to the smoke of others. You may use acetaminophen (Tylenol) or ibuprofen (Motrin, Advil) to control fever, unless another medicine was prescribed. [NOTE: If you have chronic liver or kidney disease or ever had a stomach ulcer or GI bleeding, talk with your doctor before using these medicines.] (Aspirin should never be used in anyone under 18 years of age who is ill with a fever. It may cause severe liver damage.) Your appetite may be poor so a light diet is fine. Avoid dehydration by drinking 6-8 glasses of fluids per day (water, soft, drinks, juices, tea, soup, etc.). Extra fluids will help loosen secretions in the lungs. Lesc-vkd-cwhfsqs cough medicines that containdextromethorphan(such as Robitussin DM) and decongestants (Actifed or Sudafed) may help relieve cough and congestion. [NOTE: Do not use decongestants if you have high blood pressure.] If you were given an inhaler, use it exactly as directed. If you need to use it more often than prescribed, your condition may be worsening. Contact your doctor or this facility. If prescribed, finish all antibiotic medicine, even if you are feeling better after only a few days. Follow Up With Your Doctor Or As Directed If You Are Not Starting To Feel Better After Three Days. [NOTE: If you are age 65 or older, or if you have chronic asthma or COPD, we recommend a pneumococcal vaccination every five years and a yearly influenza vaccination (flu shot) every . Ask your doctor about this. If you had an x-ray or EKG (electrocardiogram), it will be reviewed by a specialist. You will be notified of any new findings that may affect your care.] Get Prompt Medical Attention If Any Of The Following Occur: Increased wheezing, shortness of breath or pain with breathing Fever of 100.4F (38C) oral or higher, not better with fever medication Coughing up blood or increasing amounts of colored sputum Weakness, drowsiness, headache, facial pain, ear pain or a stiff neck Lower leg swelling, tenderness, redness or pain Albuterol Sulfate Pressurized inhalation, suspension What is this medicine? ALBUTEROL (al BYOO ter ole) is a bronchodilator. It helps open up the airways in your lungs to make it easier to breathe. This medicine is used to treat and to prevent bronchospasm. How should I use this medicine? This medicine is for inhalation through the mouth. Follow the directions on your prescription label. Take your medicine at regular intervals. Do not use more often than directed. Make sure that you are using your inhaler correctly. Ask you doctor or health care provider if you have any questions. Talk to your protective services officer regarding the use of this medicine in children. Special care may be needed. What side effects may I notice from receiving this medicine? Side effects that you should report to your doctor or health district manager primary care sales as soon as possible: allergic reactions like skin rash, itching or hives, swelling of the face, lips, or tongue breathing problems chest pain feeling faint or lightheaded, falls high blood pressure irregular heartbeat fever muscle cramps or weakness pain, tingling, numbness in the hands or feet vomiting Side effects that usually do not require medical attention (report to your doctor or health district manager primary care sales if they continue or are bothersome): cough difficulty sleeping headache nervousness or trembling stomach upset stuffy or runny nose throat irritation unusual taste What may interact with this medicine? anti-infectives like chloroquine and pentamidine caffeine cisapride diuretics medicines for colds medicines for depression or for emotional or psychotic conditions medicines for weight loss including some herbal products methadone some antibiotics like clarithromycin, erythromycin, levofloxacin, and linezolid some heart medicines steroid hormones like dexamethasone, cortisone, hydrocortisone theophylline thyroid hormones What if I miss a dose? If you miss a dose, use it as soon as you can. If it is almost time for your next dose, use only that dose. Do not use double or extra doses. Where should I keep my medicine? Keep out of the reach of children. Store at room temperature between 15 and 30 degrees C (59 and 86 degrees F). The contents are under pressure and may burst when exposed to heat or flame. Do not freeze. This medicine does not work as well if it is too cold. Throw away any unused medicine after the expiration date. Inhalers need to be thrown away after the labeled number of puffs have been used or by the expiration date; whichever comes first. Ventolin HFA should be thrown away 12 months after removing from foil pouch. Check the instructions that come with your medicine. What should I tell my health care provider before I take this medicine? They need to know if you have any of the following conditions: diabetes heart disease or irregular heartbeat high blood pressure pheochromocytoma seizures thyroid disease an unusual or allergic reaction to albuterol, levalbuterol, sulfites, other medicines, foods, dyes, or preservatives or trying to get breast-feeding What should I watch for while using this medicine? Tell your doctor or health district manager primary care sales if your symptoms do not improve. Do not use extra albuterol. If your asthma or bronchitis gets worse while you are using this medicine, call your doctor right away. If your mouth gets dry try chewing sugarless gum or sucking hard candy. Drink water as directed. You have been given the following additional information: Bronchitis, No Antibiotic (Adult) Bronchitis With Wheezing (Adult) Albuterol Sulfate Pressurized inhalation, suspension (Electronically signed by Arash Valenzuela MD 08/01/2016 23:14)
--- NOTE | 2016-08-01 23:15 | ED MAR SUMMARY ---
..... Medication Administration Record [facility] [address] [facility] [facility] [place] [address] Patient: TESSIE CONRAD Visit ID: [id number] 41y, M Weight: 99.7 kg Height/Length: 73 in BMI: 29 ALLERGIES: Penicillins Given 06:22 07/30/2016 Richar Middleton R.N. Medication Administered: PREDNISONE [PO], Dose: 40 mg PO. Medication Ordered: Prednisone PO 40 mg (NOW). Given 06:22 07/30/2016 Richar Middleton RJozefNJozef Medication Administered: ZOFRAN ODT [PO] (ONDANSETRON), Dose: 4 mg PO. Medication Ordered: Zofran ODT PO 4 mg (NOW). Given 06:33 07/30/2016 Florentin Guillermo, ER Senior Statistician Medication Administered: ALBUTEROL [NEB TX], Dose: 1 unit dose Nebulizer Neb TX. Medication Ordered: Albuterol Neb Tx 5 mg (N). Given 06:59 07/30/2016 Florentin Guillermo, ER Senior Statistician Medication Administered: ALBUTEROL [NEB TX], Dose: 1 unit dose Nebulizer Neb TX. Medication Ordered: Albuterol Neb Tx 1 unit dose (NOW).
== END 2016-07-30 07:42 ==
LOC: ED SRH 05:39
DX: J45.901 Unspecified asthma with (acute) exacerbation (principal); J40 Bronchitis, not specified as acute or chronic; I25.10 Atherosclerotic heart disease of native coronary artery without angina pectoris; I25.2 Old myocardial infarction; F17.200 Nicotine dependence, unspecified, uncomplicated; Z88.0 Allergy status to penicillin

== ENCOUNTER 2016-09-27 01:33 | Emergency (ER) | payer OTHER ==
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
--- NOTE | 2016-09-27 03:50 | ED ORDER SUMMARY ---
..... Patient: TESSIE CONRAD OrderSheet [facility] VisitID: [id number] [address] [place] [address] 41y, M Registration Date/Time: 09/27/2016 ORDER SHEET Weight: 98.8 kg (stated) Allergies: Penicillin GENERAL ORDERS: Shoulder 2V or more Right Urgent (02:35 09/27/2016 Sabrina ALVAREZ) (Ack 2:39 SRedmond) (3:08 AMcQuoid ER Tech1) Sling - arm (RIGHT) (03:37 09/27/2016 Sabrina ALVAREZ) (Ack 3:44 DDavis R.N.) (3:44 DDavis R.N.) MEDICATION ORDERS: Hydrocodone-APAP PO 5/325 mg 2 TABS (NOW) (03:47 09/27/2016 Sabrina ALVAREZ) (3:51 DDavis R.N.) IV FLUIDS: ORDER SHEET NOTES: [Electronically signed by Salazar James R.N. (03:57 09/27/2016)] [Electronically signed by Arash Valenzuela MD (11:44 09/28/2016)] [Electronically locked/signed by Salazar James R.N. (03:57 09/27/2016)]
--- NOTE | 2016-09-27 03:50 | ED ORDER SUMMARY ---
..... Patient: TESSIE CONRAD OrderSheet [facility] VisitID: [id number] [address] [place] [address] 41y, M Registration Date/Time: 09/27/2016 ORDER SHEET Weight: 98.8 kg (stated) Allergies: Penicillin GENERAL ORDERS: Shoulder 2V or more Right Urgent (02:35 09/27/2016 Sabrina ALVAREZ) (Ack 2:39 SRedmond) (3:08 AMcQuoid ER Tech1) Sling - arm (RIGHT) (03:37 09/27/2016 Sabrina ALVAREZ) (Ack 3:44 DDavis R.N.) (3:44 DDavis R.N.) MEDICATION ORDERS: Hydrocodone-APAP PO 5/325 mg 2 TABS (NOW) (03:47 09/27/2016 Sarbina ALVAREZ) (3:51 DDavis R.N.) IV FLUIDS: ORDER SHEET NOTES: [Electronically signed by Salazar James R.N. (03:57 09/27/2016)] [Electronically signed by Arash Valenzuela MD (11:44 09/28/2016)] [Electronically locked/signed by Salazar James R.N. (03:57 09/27/2016)]
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
--- NOTE | 2016-09-27 06:30 | DIAGNOSTIC IMAGING REPORT ---
PROCEDURE: XR SHOULDER 2 OR MORE VW-RIGHT INDICATION: TRAUMA/INJURY TECHNIQUE: Three views. COMPARISON: None. FINDINGS: Osseous structures and joint spaces are normal. IMPRESSION: 1. Normal left shoulder.
--- NOTE | 2016-09-28 11:45 | ED MAR SUMMARY ---
..... Medication Administration Record [facility] [address], [place] [id number] Patient: TESSIE CONRAD Visit ID: [id number] 41y, M Weight: 98.8 kg Height/Length: 73 in BMI: 28.7 ALLERGIES: Penicillin
--- NOTE | 2016-09-28 11:45 | ED DISCHARGE INSTRUCTIONS ---
Patient: TESSIE CONRAD General Instructions [facility] VisitID: [id number] [place] [address] 41y, M Registration Date/Time: 09/27/2016 Contusion to the right shoulder. INSTRUCTIONS (PASSIVE RANGE OF MOTION OF THE SHOULDER I DEMONSTRATED TO YOU THREE TIMES A DAY). Prescription Medications: Hydrocodone/APAP 5mg / 325mg: take 1-2 orally every 4 hours as needed for pain. Dispense twenty (20). No refill. Follow-up: Follow up with your doctor AT THE [facility] in five days if not well. Reason for referral: FOLLOW UP OF R SHOULDER INJURY. Understanding of the discharge instructions verbalized by patient. ADDITIONAL INFORMATION Contusion:Upper Extremity You have a contusion of your upper extremity (arm, wrist, hand or fingers). This causes local pain, swelling and sometimes bruising. There are no broken bones. This injury takes a few days to a few weeks to heal. A sling may be provided for comfort and arm support. Home Care: 1) Keep your arm elevated to reduce pain and swelling. This is very important during the first 48 hours. 2) Apply an ice pack (ice cubes in a plastic bag, wrapped in a towel) over the injured area for 20 minutes every 1-2 hours the first day for pain relief. Continue this 3-4 times a day until the pain and swelling goes away. 3) You may use acetaminophen (Tylenol) or ibuprofen (Motrin, Advil) to control pain, unless another pain medicine was prescribed. [ NOTE : If you have chronic liver or kidney disease or ever had a stomach ulcer or GI bleeding, talk with your doctor before using these medicines.] 4) If a sling was provided, you may remove it to shower or bathe. Do not wear it for more than one week or it may cause joint stiffness. Follow Up with your doctor or this facility if you are not starting to improve within the next THREE days. [NOTE: If X-rays were taken, they will be reviewed by a radiologist. You will be notified of any new findings that may affect your care.] Get Prompt Medical Attention if any of the following occur: -- Pain or swelling increases -- Redness, warmth or drainage -- Hand or fingers becomes cold, blue, numb or tingly Hydrocodone Bitartrate, Acetaminophen Oral tablet What is this medicine? ACETAMINOPHEN; HYDROCODONE (a set a NOLVIA bharati fen; sirisha droe KOE done) is a pain reliever. It is used to treat mild to moderate pain. How should I use this medicine? Take this medicine by mouth. Swallow it with a full glass of water. Follow the directions on the prescription label. If the medicine upsets your stomach, take the medicine with food or milk. Do not take more than you are told to take. Talk to your master coastal [employer] regarding the use of this medicine in children. This medicine is not approved for use in children. What side effects may I notice from receiving this medicine? Side effects that you should report to your doctor or health animal care supervisor as soon as possible: allergic reactions like skin rash, itching or hives, swelling of the face, lips, or tongue breathing problems confusion feeling faint or lightheaded, falls stomach pain yellowing of the eyes or skin Side effects that usually do not require medical attention (report to your doctor or health animal care supervisor if they continue or are bothersome): nausea, vomiting stomach upset What may interact with this medicine? alcohol antihistamines isoniazid medicines for depression, anxiety, or psychotic disturbances medicines for sleep muscle relaxants naltrexone narcotic medicines (opiates) for pain phenobarbital ritonavir tramadol What if I miss a dose? If you miss a dose, take it as soon as you can. If it is almost time for your next dose, take only that dose. Do not take double or extra doses. Where should I keep my medicine? Keep out of the reach of children. This medicine can be abused. Keep your medicine in a safe place to protect it from theft. Do not share this medicine with anyone. Selling or giving away this medicine is dangerous and against the law. Store at room temperature between 15 and 30 degrees C (59 and 86 degrees F). Protect from light. Keep container tightly closed. Throw away any unused medicine after the expiration date. Discard unused medicine and used packaging carefully. Pets and children can be harmed if they find used or lost packages. What should I tell my health care provider before I take this medicine? They need to know if you have any of these conditions: brain tumor Crohn's disease, inflammatory bowel disease, or ulcerative colitis drink more than 3 alcohol-containing drinks per day drug abuse or addiction head injury heart or circulation problems kidney disease or problems going to the bathroom liver disease lung disease, asthma, or breathing problems an unusual or allergic reaction to acetaminophen, hydrocodone, other opioid analgesics, other medicines, foods, dyes, or preservatives or trying to get breast-feeding What should I watch for while using this medicine? Tell your doctor or health animal care supervisor if your pain does not go away, if it gets worse, or if you have new or a different type of pain. You may develop tolerance to the medicine. Tolerance means that you will need a higher dose of the medicine for pain relief. Tolerance is normal and is expected if you take the medicine for a long time. Do not suddenly stop taking your medicine because you may develop a severe reaction. Your body becomes used to the medicine. This does NOT mean you are addicted. Addiction is a behavior related to getting and using a drug for a non-medical reason. If you have pain, you have a medical reason to take pain medicine. Your doctor will tell you how much medicine to take. If your doctor wants you to stop the medicine, the dose will be slowly lowered over time to avoid any side effects. You may get drowsy or dizzy when you first start taking the medicine or change doses. Do not drive, use machinery, or do anything that may be dangerous until you know how the medicine affects you. Stand or sit up slowly. There are different types of narcotic medicines (opiates) for pain. If you take more than one type at the same time, you may have more side effects. Give your health care provider a list of all medicines you use. Your doctor will tell you how much medicine to take. Do not take more medicine than directed. Call emergency for help if you have problems breathing. The medicine will cause constipation. Try to have a bowel movement at least every 2 to 3 days. If you do not have a bowel movement for 3 days, call your doctor or health animal care supervisor. Too much acetaminophen can be very dangerous. Do not take Tylenol (acetaminophen) or medicines that contain acetaminophen with this medicine. Many non-prescription medicines contain acetaminophen. Always read the labels carefully. You have been given the following additional information: Contusion, Upper Extremity Hydrocodone Bitartrate, Acetaminophen Oral tablet (Electronically signed by Arash Valenzuela MD 09/28/2016 11:44)
--- NOTE | 2016-09-28 11:45 | ED MAR SUMMARY ---
..... Medication Administration Record [facility] [address] [place], [place] [id number] Patient: TESSIE CONRAD Visit ID: [id number] 41y, M Weight: 98.8 kg Height/Length: 73 in BMI: 28.7 ALLERGIES: Penicillin
--- NOTE | 2016-09-28 11:45 | ED DISCHARGE INSTRUCTIONS ---
Patient: TESSIE CONRAD General Instructions [facility] VisitID: [id number] [place] [address] 41y, M Registration Date/Time: 09/27/2016 Contusion to the right shoulder. INSTRUCTIONS (PASSIVE RANGE OF MOTION OF THE SHOULDER I DEMONSTRATED TO YOU THREE TIMES A DAY). Prescription Medications: Hydrocodone/APAP 5mg / 325mg: take 1-2 orally every 4 hours as needed for pain. Dispense twenty (20). No refill. Follow-up: Follow up with your doctor AT THE [facility] in five days if not well. Reason for referral: FOLLOW UP OF R SHOULDER INJURY. Understanding of the discharge instructions verbalized by patient. ADDITIONAL INFORMATION Contusion:Upper Extremity You have a contusion of your upper extremity (arm, wrist, hand or fingers). This causes local pain, swelling and sometimes bruising. There are no broken bones. This injury takes a few days to a few weeks to heal. A sling may be provided for comfort and arm support. Home Care: 1) Keep your arm elevated to reduce pain and swelling. This is very important during the first 48 hours. 2) Apply an ice pack (ice cubes in a plastic bag, wrapped in a towel) over the injured area for 20 minutes every 1-2 hours the first day for pain relief. Continue this 3-4 times a day until the pain and swelling goes away. 3) You may use acetaminophen (Tylenol) or ibuprofen (Motrin, Advil) to control pain, unless another pain medicine was prescribed. [ NOTE : If you have chronic liver or kidney disease or ever had a stomach ulcer or GI bleeding, talk with your doctor before using these medicines.] 4) If a sling was provided, you may remove it to shower or bathe. Do not wear it for more than one week or it may cause joint stiffness. Follow Up with your doctor or this facility if you are not starting to improve within the next THREE days. [NOTE: If X-rays were taken, they will be reviewed by a radiologist. You will be notified of any new findings that may affect your care.] Get Prompt Medical Attention if any of the following occur: -- Pain or swelling increases -- Redness, warmth or drainage -- Hand or fingers becomes cold, blue, numb or tingly Hydrocodone Bitartrate, Acetaminophen Oral tablet What is this medicine? ACETAMINOPHEN; HYDROCODONE (a set a NOLVIA bharati fen; sirisha droe KOE done) is a pain reliever. It is used to treat mild to moderate pain. How should I use this medicine? Take this medicine by mouth. Swallow it with a full glass of water. Follow the directions on the prescription label. If the medicine upsets your stomach, take the medicine with food or milk. Do not take more than you are told to take. Talk to your technical assoc regarding the use of this medicine in children. This medicine is not approved for use in children. What side effects may I notice from receiving this medicine? Side effects that you should report to your doctor or health career development coordinator/teacher as soon as possible: allergic reactions like skin rash, itching or hives, swelling of the face, lips, or tongue breathing problems confusion feeling faint or lightheaded, falls stomach pain yellowing of the eyes or skin Side effects that usually do not require medical attention (report to your doctor or health career development coordinator/teacher if they continue or are bothersome): nausea, vomiting stomach upset What may interact with this medicine? alcohol antihistamines isoniazid medicines for depression, anxiety, or psychotic disturbances medicines for sleep muscle relaxants naltrexone narcotic medicines (opiates) for pain phenobarbital ritonavir tramadol What if I miss a dose? If you miss a dose, take it as soon as you can. If it is almost time for your next dose, take only that dose. Do not take double or extra doses. Where should I keep my medicine? Keep out of the reach of children. This medicine can be abused. Keep your medicine in a safe place to protect it from theft. Do not share this medicine with anyone. Selling or giving away this medicine is dangerous and against the law. Store at room temperature between 15 and 30 degrees C (59 and 86 degrees F). Protect from light. Keep container tightly closed. Throw away any unused medicine after the expiration date. Discard unused medicine and used packaging carefully. Pets and children can be harmed if they find used or lost packages. What should I tell my health care provider before I take this medicine? They need to know if you have any of these conditions: brain tumor Crohn's disease, inflammatory bowel disease, or ulcerative colitis drink more than 3 alcohol-containing drinks per day drug abuse or addiction head injury heart or circulation problems kidney disease or problems going to the bathroom liver disease lung disease, asthma, or breathing problems an unusual or allergic reaction to acetaminophen, hydrocodone, other opioid analgesics, other medicines, foods, dyes, or preservatives or trying to get breast-feeding What should I watch for while using this medicine? Tell your doctor or health career development coordinator/teacher if your pain does not go away, if it gets worse, or if you have new or a different type of pain. You may develop tolerance to the medicine. Tolerance means that you will need a higher dose of the medicine for pain relief. Tolerance is normal and is expected if you take the medicine for a long time. Do not suddenly stop taking your medicine because you may develop a severe reaction. Your body becomes used to the medicine. This does NOT mean you are addicted. Addiction is a behavior related to getting and using a drug for a non-medical reason. If you have pain, you have a medical reason to take pain medicine. Your doctor will tell you how much medicine to take. If your doctor wants you to stop the medicine, the dose will be slowly lowered over time to avoid any side effects. You may get drowsy or dizzy when you first start taking the medicine or change doses. Do not drive, use machinery, or do anything that may be dangerous until you know how the medicine affects you. Stand or sit up slowly. There are different types of narcotic medicines (opiates) for pain. If you take more than one type at the same time, you may have more side effects. Give your health care provider a list of all medicines you use. Your doctor will tell you how much medicine to take. Do not take more medicine than directed. Call emergency for help if you have problems breathing. The medicine will cause constipation. Try to have a bowel movement at least every 2 to 3 days. If you do not have a bowel movement for 3 days, call your doctor or health career development coordinator/teacher. Too much acetaminophen can be very dangerous. Do not take Tylenol (acetaminophen) or medicines that contain acetaminophen with this medicine. Many non-prescription medicines contain acetaminophen. Always read the labels carefully. You have been given the following additional information: Contusion, Upper Extremity Hydrocodone Bitartrate, Acetaminophen Oral tablet (Electronically signed by Arash Valenzuela MD 09/28/2016 11:44)
--- NOTE | 2016-09-28 11:45 | ED MED RECONCILIATION SUMMARY ---
Patient: TESSIE CONRAD Medication Reconciliation Report [facility] VisitID: [id number] [address] [place] [address] 41y, M Registration Date/Time: 09/27/2016 Weight: 98.8 kg Height/Length: 73 in. BMI: 28.7 ALLERGIES: Penicillin The patient's Home Medications are listed below: THE FOLLOWING MEDICATIONS NEED TO BE RECONCILED: Aspirin Oral Lantus Subcutaneous NovoLOG Subcutaneous Omeprazole Oral The source(s) of the original Home Medication information: patient The following Medications were given to the patient in the Emergency Department: None. The following Medications were prescribed to the patient: Hydrocodone/APAP 5mg / 325mg: take 1-2 orally every 4 hours as needed for pain. Dispense twenty (20). No refill. -- Arash Valenzuela MD
--- NOTE | 2016-09-28 11:45 | ED MED RECONCILIATION SUMMARY ---
Patient: TESSIE CONRAD Medication Reconciliation Report [facility] VisitID: [id number] [address] [place] [address] 41y, M Registration Date/Time: 09/27/2016 Weight: 98.8 kg Height/Length: 73 in. BMI: 28.7 ALLERGIES: Penicillin The patient's Home Medications are listed below: THE FOLLOWING MEDICATIONS NEED TO BE RECONCILED: Aspirin Oral Lantus Subcutaneous NovoLOG Subcutaneous Omeprazole Oral The source(s) of the original Home Medication information: patient The following Medications were given to the patient in the Emergency Department: None. The following Medications were prescribed to the patient: Hydrocodone/APAP 5mg / 325mg: take 1-2 orally every 4 hours as needed for pain. Dispense twenty (20). No refill. -- Arash Valenzuela MD
== END 2016-09-27 03:57 | disposition home or self-care (01) ==
LOC: ED SRH 01:33
DX: S40.011A Contusion of right shoulder, initial encounter (principal); V43.62XA Car passenger injured in collision with other type car in traffic accident, initial encounter; Y93.I9 Activity, other involving external motion; Y92.410 Unspecified street and highway as the place of occurrence of the external cause; Y99.9 Unspecified external cause status; K21.9 Gastro-esophageal reflux disease without esophagitis

== ENCOUNTER 2016-10-24 01:10 | Emergency (ER) | payer OTHER ==
--- NOTE | 2016-10-24 01:44 | ED ORDER SUMMARY ---
..... Patient: TESSIE CONRAD OrderSheet [facility] VisitID: [id number] [address] [place] [address] 41y, M Registration Date/Time: 10/24/2016 ORDER SHEET Weight: 97.9 kg (stated) Allergies: Penicillin GENERAL ORDERS: MEDICATION ORDERS: Hydrocodone-APAP PO 5/325 mg (NOW, HIGH ALERT MEDICATION) (01:28 10/24/2016 Amarilis Ward) (Ack 1:32 HSoule) (1:34 HSoule) Cleocin PO 300 mg (NOW) (01:29 10/24/2016 Amarilis Ward) (Ack 1:32 HSoule) (1:35 HSoule) IV FLUIDS: ORDER SHEET NOTES: [Electronically signed by Miguel Banegas Dr. (01:48 10/24/2016)] [Electronically signed by Yesy Jaramillo R.N. (:10/25/2016)] [Electronically locked/signed by Yesy Jaramillo R.N. (:10/25/2016)]
--- NOTE | 2016-10-24 01:44 | ED ORDER SUMMARY ---
..... Patient: TESSIE CONRAD OrderSheet [facility] VisitID: [id number] [address] [place] [address] 41y, M Registration Date/Time: 10/24/2016 ORDER SHEET Weight: 97.9 kg (stated) Allergies: Penicillin GENERAL ORDERS: MEDICATION ORDERS: Hydrocodone-APAP PO 5/325 mg (NOW, HIGH ALERT MEDICATION) (01:28 10/24/2016 Amarilis Ward) (Ack 1:32 HSoule) (1:34 HSoule) Cleocin PO 300 mg (NOW) (01:29 10/24/2016 Amarilis Ward) (Ack 1:32 HSoule) (1:35 HSoule) IV FLUIDS: ORDER SHEET NOTES: [Electronically signed by Miguel Banegas Dr. (01:48 10/24/2016)] [Electronically signed by Yesy Jaramillo R.N. (:10/25/2016)] [Electronically locked/signed by Yesy Jaramillo R.N. (:10/25/2016)]
--- NOTE | 2016-10-24 01:44 | ED CLINICAL REPORT ---
Clinical Report - Physicians/Mid Levels [place] [address] [place] [address] 10/24/2016 1:09 Patient: TESSIE CONRAD Time Seen: 01:15; initial patient contact. Arrived- By private vehicle. Historian- patient. HISTORY OF PRESENT ILLNESS Chief Complaint: DENTAL PAIN. This started yesterday and is still present. It was gradual in onset and has been constant. Pain described as moderate. The patient has had toothache. No swollen jaw or face, jaw pain or facial pain. Similar symptoms previously: Many times. Recent medical care: Not recently seen/assessed. REVIEW OF SYSTEMS No fever or headache. All systems otherwise negative, except as recorded above. PAST HISTORY Heart Disease. Asthma. Chest Pain. Unstable Angina. Depression. Dental Pain. Sinusitis. Diabetes Mellitus. ADDITIONAL SURGERIES: Skin growth removed on scalp. SOCIAL HISTORY Current every day smoker. History of drug use: marijuana. ADDITIONAL NOTES The nursing notes have been reviewed. PHYSICAL EXAM Vital Signs: 10/24/2016 01:13 BP: 140/84. HR: 85. RR: 16. O2 saturation: 99%. Temp: 97.6 F. Pain level now: 8/10. Have been reviewed. Hypertensive. Heart rate normal. Respiratory rate normal. Temperature normal. Oxygen saturation normal. Appearance: Alert. No acute distress. Head: Normal external inspection. Eyes: Conjunctivae and eyelids normal. ENT: Moderate, extensive dental decay. Moderate dental tenderness of a single tooth (lower left first premolar). Pharynx normal. No trismus present. Neck: No adenopathy. Neuro: Oriented X 3. PROGRESS AND PROCEDURES Disposition: Discharged home in good and improved condition. Condition: good. CLINICAL IMPRESSION Dental caries (extensive decay) INSTRUCTIONS Your Current Medications: CONTINUE TAKING THE FOLLOWING MEDICATIONS: Aspirin Oral. Lantus Subcutaneous. NovoLOG Subcutaneous. Omeprazole Oral. Simvastatin Oral. Prescription Medications: Hydrocodone/APAP 5mg / 325mg: take 1 orally every 6 hours as needed for pain. Dispense fifteen (15). No refill. Cleocin 300 mg: take 1 capsule orally every 6 hours for 7 days. No refill. Substitution is permissible. Follow-up: Screening today revealed the patient's blood pressure to be in the hypertensive range. The patient should follow up with a primary care provider for blood pressure management. Follow-up with: [facility], , , , , , Follow up in about two days. Call for an appointment. (Electronically signed by Miguel Banegas Dr. 10/24/2016 1:48)
--- NOTE | 2016-10-24 01:44 | ED NURSING NOTES ---
Clinical Report - Nurses [place] [address] [place] [address] 10/24/2016 1:09 Patient: TESSIE CONRAD TRIAGE Triage time 01:Oct 24 2016. Acuity: LEVEL 4. Chief Complaint: RIGHT UPPER and LOWER and LEFT UPPER and LOWER TOOTHACHE and CHIPPED TOOTH. 01:17 10/24/16. SEPSIS SCREEN: Sepsis Screen: negative. Negative (no infection suspected/documented). JADE COMA SCORE: [place] Coma Scale: 15- eyes open spontaneously (4); best verbal response- oriented x 4 (5); best motor response- obeys commands (6). --01:17 Amelia Florez 01:13 10/24/16. BP: 140/84. HR: 85. RR: 16. O2 saturation: 99%. Temp: 97.6 F (oral). Pain level now: 02/24. --01:17 Amelia Florez. Weight: 97.9 kg stated. Height/Length: 73 inches Per Patient. BMI: 28.5. --01:16 Amelia Florez. Medications Aspirin Oral. Lantus Subcutaneous. NovoLOG Subcutaneous. Omeprazole Oral. --01:15 Amelia Florez Simvastatin Oral. --01:15 Amelia Florez. Medication/allergy information source: the patient. --01:17 Amelia Florez. Allergies Penicillin. --01:15 Amelia Florez. History Arrived by private vehicle. Historian: patient. Accompanied by family. Primary physician ([facility]). This started today. ( Patient reports pain where he has broken teeth and some decay. He states the worst is the bottom left side of his mouth. He states that he has an appointment in two weeks but cannot wait till.). He has a dental appointment scheduled (2 weeks). He has had ear pain. PAST MEDICAL HX: Immunizations: up-to-date. SOCIAL HX: Light tobacco smoker (cigarette)- less than 1/2 a pack per day. History of drug use: marijuana. No alcohol use. No infectious disease exposure. ABUSE ASSESSMENT: No report of abuse. FALL RISK ASSESSMENT: Fall risk assessment completed. No fall risk identified. NUTRITIONAL RISK ASSESSMENT: The nutritional risk assessment revealed no deficiencies. FUNCTIONAL ASSESSMENT: Functional assessment: no impairments noted. LEARNING NEEDS ASSESSMENT: The learning needs assessment revealed no barriers. SKIN INTEGRITY ASSESSMENT: Skin integrity risk assessment completed. No skin integrity risk identified. --01:17 Amelia Florez. PROBLEMS: Heart Disease. Asthma. Chest Pain. Unstable Angina. Depression. Dental Pain. Sinusitis. Diabetes Mellitus. --01:16 Amelia Florez. ADDITIONAL SURGERIES: Skin growth removed on scalp. --01:16 Amelia Florez. Interventions ID band on patient. To treatment room. --:17 Amelia Florez. PHYSICAL ASSESSMENT 01:18 10/24/16. Ambulatory to room. GENERAL / NEURO / PSYCH: Alert. Oriented X 4. Appears in no acute distress. HEENT: Pupils equal, round and reactive to light. Pharynx within normal limits. Voice within normal limits. Dental tenderness. Extensive dental decay. Mucous membranes are pink. RESPIRATORY: Respirations not labored. SKIN: Skin is warm and dry. --01:18 Amelia Florez. NURSING PROGRESS NOTES 01:18 10/24/16. Reassurance given to the patient. Two patient identifiers checked. Call light placed in reach. Side rails up x 1. Bed placed in lowest position. Brakes of bed on. Patient ready for evaluation- chart flagged and ED physician notified. --01:18 Amelia Florez 01:34 10/24/2016 Hydrocodone-APAP (Hydrocodone-Acetaminophen) PO 5/325 mg Tablets 1 tab given. Allergies verified, confirmed 5 rights and sedative warning given to the patient and patient's family. --01:34 Amelia Florez 01:35 10/24/2016 Cleocin (Clindamycin HCl) PO Capsules 300 mg given. Allergies verified and confirmed 5 rights. --01:35 Amelia Florez. DISPOSITION / DISCHARGE 01:53 10/24/16. Condition at departure: improved and stable. The goals identified in the patient's plan of care were met. No learning barriers present. Discharge instructions provided and reviewed with the patient. Reviewed warnings (Do not drive while on sedative medications). Reviewed medication(s) side effects, precautions, dosing and course information. Prescription(s) given to the patient. Reviewed need for increased fluid intake. Patient verbalized understanding. Written instructions provided in Irish. ( Follow up with your dentist as scheduled. Follow up with PCP in three days. Return if symptoms worsen. Increase fluids while on antibiotics. Patient verbalized understanding of discharge instructions and had no questions at this time.). The patient was discharged by the physician. He was discharged home and accompanied by family. He left the Emergency Department ambulatory and via private vehicle. Family member driving. FALL RISK ASSESSMENT: Fall risk assessment completed. No fall risk identified. --01:53 Amelia Florez 01:51 10/24/16. BP: deferred. HR: deferred. RR: deferred. O2 saturation: deferred. Temp: deferred. Pain level now deferred. --01:53 Amelia Florez. Locked/Released at 10/25/2016 9:17 by Yesy Jaramillo R.N.
--- NOTE | 2016-10-24 01:44 | ED NURSING NOTES ---
Clinical Report - Nurses [place] [address] [place] [address] 10/24/2016 1:09 Patient: TESSIE CONRAD TRIAGE Triage time 01:Oct 24 2016. Acuity: LEVEL 4. Chief Complaint: RIGHT UPPER and LOWER and LEFT UPPER and LOWER TOOTHACHE and CHIPPED TOOTH. 01:17 10/24/16. SEPSIS SCREEN: Sepsis Screen: negative. Negative (no infection suspected/documented). JADE COMA SCORE: [place] Coma Scale: 15- eyes open spontaneously (4); best verbal response- oriented x 4 (5); best motor response- obeys commands (6). --01:17 Amelia Florez 01:13 10/24/16. BP: 140/84. HR: 85. RR: 16. O2 saturation: 99%. Temp: 97.6 F (oral). Pain level now: 02/24. --01:17 Amelia Florez. Weight: 97.9 kg stated. Height/Length: 73 inches Per Patient. BMI: 28.5. --01:16 Amelia Florez. Medications Aspirin Oral. Lantus Subcutaneous. NovoLOG Subcutaneous. Omeprazole Oral. --01:15 Amelia Florez Simvastatin Oral. --01:15 Amelia Florez. Medication/allergy information source: the patient. --01:17 Amelia Florez. Allergies Penicillin. --01:15 Amleia Florez. History Arrived by private vehicle. Historian: patient. Accompanied by family. Primary physician ([facility]). This started today. ( Patient reports pain where he has broken teeth and some decay. He states the worst is the bottom left side of his mouth. He states that he has an appointment in two weeks but cannot wait till.). He has a dental appointment scheduled (2 weeks). He has had ear pain. PAST MEDICAL HX: Immunizations: up-to-date. SOCIAL HX: Light tobacco smoker (cigarette)- less than 1/2 a pack per day. History of drug use: marijuana. No alcohol use. No infectious disease exposure. ABUSE ASSESSMENT: No report of abuse. FALL RISK ASSESSMENT: Fall risk assessment completed. No fall risk identified. NUTRITIONAL RISK ASSESSMENT: The nutritional risk assessment revealed no deficiencies. FUNCTIONAL ASSESSMENT: Functional assessment: no impairments noted. LEARNING NEEDS ASSESSMENT: The learning needs assessment revealed no barriers. SKIN INTEGRITY ASSESSMENT: Skin integrity risk assessment completed. No skin integrity risk identified. --01:17 Amelia Florez. PROBLEMS: Heart Disease. Asthma. Chest Pain. Unstable Angina. Depression. Dental Pain. Sinusitis. Diabetes Mellitus. --01:16 Amelia Florez. ADDITIONAL SURGERIES: Skin growth removed on scalp. --01:16 Amelia Florez. Interventions ID band on patient. To treatment room. --:17 Amelia Florez. PHYSICAL ASSESSMENT 01:18 10/24/16. Ambulatory to room. GENERAL / NEURO / PSYCH: Alert. Oriented X 4. Appears in no acute distress. HEENT: Pupils equal, round and reactive to light. Pharynx within normal limits. Voice within normal limits. Dental tenderness. Extensive dental decay. Mucous membranes are pink. RESPIRATORY: Respirations not labored. SKIN: Skin is warm and dry. --01:18 Amelia Florez. NURSING PROGRESS NOTES 01:18 10/24/16. Reassurance given to the patient. Two patient identifiers checked. Call light placed in reach. Side rails up x 1. Bed placed in lowest position. Brakes of bed on. Patient ready for evaluation- chart flagged and ED physician notified. --01:18 Amelia Florez 01:34 10/24/2016 Hydrocodone-APAP (Hydrocodone-Acetaminophen) PO 5/325 mg Tablets 1 tab given. Allergies verified, confirmed 5 rights and sedative warning given to the patient and patient's family. --01:34 Amelia Florez 01:35 10/24/2016 Cleocin (Clindamycin HCl) PO Capsules 300 mg given. Allergies verified and confirmed 5 rights. --01:35 Amelia Florez. DISPOSITION / DISCHARGE 01:53 10/24/16. Condition at departure: improved and stable. The goals identified in the patient's plan of care were met. No learning barriers present. Discharge instructions provided and reviewed with the patient. Reviewed warnings (Do not drive while on sedative medications). Reviewed medication(s) side effects, precautions, dosing and course information. Prescription(s) given to the patient. Reviewed need for increased fluid intake. Patient verbalized understanding. Written instructions provided in Chinese. ( Follow up with your dentist as scheduled. Follow up with PCP in three days. Return if symptoms worsen. Increase fluids while on antibiotics. Patient verbalized understanding of discharge instructions and had no questions at this time.). The patient was discharged by the physician. He was discharged home and accompanied by family. He left the Emergency Department ambulatory and via private vehicle. Family member driving. FALL RISK ASSESSMENT: Fall risk assessment completed. No fall risk identified. --01:53 Amelia Florez 01:51 10/24/16. BP: deferred. HR: deferred. RR: deferred. O2 saturation: deferred. Temp: deferred. Pain level now deferred. --01:53 Amelia Florez. Locked/Released at 10/25/2016 9:17 by Yesy Jaramillo R.N.
--- NOTE | 2016-10-24 01:44 | ED CLINICAL REPORT ---
Clinical Report - Physicians/Mid Levels [place] [address] [place] [address] 10/24/2016 1:09 Patient: TESSIE CONRAD Time Seen: 01:15; initial patient contact. Arrived- By private vehicle. Historian- patient. HISTORY OF PRESENT ILLNESS Chief Complaint: DENTAL PAIN. This started yesterday and is still present. It was gradual in onset and has been constant. Pain described as moderate. The patient has had toothache. No swollen jaw or face, jaw pain or facial pain. Similar symptoms previously: Many times. Recent medical care: Not recently seen/assessed. REVIEW OF SYSTEMS No fever or headache. All systems otherwise negative, except as recorded above. PAST HISTORY Heart Disease. Asthma. Chest Pain. Unstable Angina. Depression. Dental Pain. Sinusitis. Diabetes Mellitus. ADDITIONAL SURGERIES: Skin growth removed on scalp. SOCIAL HISTORY Current every day smoker. History of drug use: marijuana. ADDITIONAL NOTES The nursing notes have been reviewed. PHYSICAL EXAM Vital Signs: 10/24/2016 01:13 BP: 140/84. HR: 85. RR: 16. O2 saturation: 99%. Temp: 97.6 F. Pain level now: 8/10. Have been reviewed. Hypertensive. Heart rate normal. Respiratory rate normal. Temperature normal. Oxygen saturation normal. Appearance: Alert. No acute distress. Head: Normal external inspection. Eyes: Conjunctivae and eyelids normal. ENT: Moderate, extensive dental decay. Moderate dental tenderness of a single tooth (lower left first premolar). Pharynx normal. No trismus present. Neck: No adenopathy. Neuro: Oriented X 3. PROGRESS AND PROCEDURES Disposition: Discharged home in good and improved condition. Condition: good. CLINICAL IMPRESSION Dental caries (extensive decay) INSTRUCTIONS Your Current Medications: CONTINUE TAKING THE FOLLOWING MEDICATIONS: Aspirin Oral. Lantus Subcutaneous. NovoLOG Subcutaneous. Omeprazole Oral. Simvastatin Oral. Prescription Medications: Hydrocodone/APAP 5mg / 325mg: take 1 orally every 6 hours as needed for pain. Dispense fifteen (15). No refill. Cleocin 300 mg: take 1 capsule orally every 6 hours for 7 days. No refill. Substitution is permissible. Follow-up: Screening today revealed the patient's blood pressure to be in the hypertensive range. The patient should follow up with a primary care provider for blood pressure management. Follow-up with: [facility], , , , , , Follow up in about two days. Call for an appointment. (Electronically signed by Miguel Banegas Dr. 10/24/2016 1:48)
--- NOTE | 2016-10-25 09:19 | ED MAR SUMMARY ---
..... Medication Administration Record [address] [place] [address] Patient: TESSIE CONRAD Visit ID: [id number] 41y, M Weight: 97.9 kg Height/Length: 73 in BMI: 28.5 ALLERGIES: Penicillin Given 01:34 10/24/2016 Amelia Florez, Medication Administered: HYDROCODONE-APAP [PO] (HYDROCODONE-ACETAMINOPHEN), Dose: 1 tab 5/325 mg Tablets PO. Medication Ordered: Hydrocodone-APAP PO 5/325 mg (NOW, HIGH ALERT MEDICATION). Given 01:35 10/24/2016 Amelia Florez, Medication Administered: CLEOCIN [PO] (CLINDAMYCIN HCL), Dose: 300 mg Capsules PO. Medication Ordered: Cleocin PO 300 mg (NOW).
--- NOTE | 2016-10-25 09:19 | ED MAR SUMMARY ---
..... Medication Administration Record [address] [place] [address] Patient: TESSIE CONRAD Visit ID: [id number] 41y, M Weight: 97.9 kg Height/Length: 73 in BMI: 28.5 ALLERGIES: Penicillin Given 01:34 10/24/2016 Amelia Florez, Medication Administered: HYDROCODONE-APAP [PO] (HYDROCODONE-ACETAMINOPHEN), Dose: 1 tab 5/325 mg Tablets PO. Medication Ordered: Hydrocodone-APAP PO 5/325 mg (NOW, HIGH ALERT MEDICATION). Given 01:35 10/24/2016 Amelia Florez, Medication Administered: CLEOCIN [PO] (CLINDAMYCIN HCL), Dose: 300 mg Capsules PO. Medication Ordered: Cleocin PO 300 mg (NOW).
--- NOTE | 2016-10-25 09:19 | ED DISCHARGE INSTRUCTIONS ---
Patient: TESSIE CONRAD General Instructions [facility] VisitID: [id number] [place] [address] 41y, M Registration Date/Time: 10/24/2016 Dental caries (extensive decay) INSTRUCTIONS Your Current Medications: CONTINUE TAKING THE FOLLOWING MEDICATIONS: Aspirin Oral. Lantus Subcutaneous. NovoLOG Subcutaneous. Omeprazole Oral. Simvastatin Oral. Prescription Medications: Hydrocodone/APAP 5mg / 325mg: take 1 orally every 6 hours as needed for pain. Dispense fifteen (15). No refill. Cleocin 300 mg: take 1 capsule orally every 6 hours for 7 days. No refill. Substitution is permissible. Follow-up: Screening today revealed the patient's blood pressure to be in the hypertensive range. The patient should follow up with a primary care provider for blood pressure management. Follow-up with: [facility], , , , , , Follow up in about two days. Call for an appointment. ADDITIONAL INFORMATION Dental Cavity A dental cavity is a pit or crater in the enamel surface of the tooth. This exposes the sensitive inner layer of the tooth and causes pain. If untreated, the cavity will get bigger and may cause an infection or abscess in the root of the tooth. An infection in the tooth is a much more serious problem and may require a root canal or removal of the entire tooth. The tooth pain may be made worse by drinking hot or cold fluids. It may spread from the tooth to the ear or jaw on the same side. Home Care: Avoid hot and cold foods, and liquids since your tooth may be sensitive to temperature changes. If your tooth is chipped or cracked, or if there is a large open cavity, apply OIL OF CLOVES (available qvpy-luy-ugkoqcm in drug stores) directly to the tooth to reduce pain. Some pharmacies carry an rtwh-zqq-tgozlnk "toothache kit." This contains oil of cloves and a paste, which can be applied over the exposed tooth to decrease sensitivity. An ice pack on your jaw over the sore area may help to reduce pain. You may use acetaminophen (Tylenol) or ibuprofen (Motrin, Advil) to control pain, unless another pain medicine was prescribed. [ NOTE: If you have liver disease or ever had a stomach ulcer, talk with your doctor before using these medicines.] If you have signs of an infection, an antibiotic will be given. Take it as directed. Follow-Up with your dentist as directed. Although your pain may go away with the treatment given, only a dentist can fully evaluate and treat this problem to prevent further tooth damage. Get Prompt Medical Attention if any of the following occur: Redness or swelling of the face Pain worsens or spreads to the neck Fever over 100.5 F (38C) Unusual drowsiness; headache or stiff neck; weakness or fainting Pus drains from the tooth or gum Difficulty swallowing or breathing Dental Pain A crack or cavity in the tooth, which exposes the sensitive inner area of the tooth can cause tooth pain. An infection in the gum or the root of the tooth can cause pain and swelling. The pain is often made worse by drinking hot or cold fluids, or biting on hard foods. Pain may spread from the tooth to the ear or jaw on the same side. Home Care: Avoid hot and cold foods and liquids since your tooth may be sensitive to temperature changes. If your tooth is chipped or cracked, or if there is a large open cavity, apply OIL OF CLOVES (available yyms-qoy-yyjahre in drug stores) directly to the tooth to reduce pain. Some pharmacies carry an xcar-qtd-pyoyhrq "toothache kit." This contains a paste, which can be applied over the exposed tooth to decrease sensitivity. A cold pack on your jaw over the sore area may help reduce pain. You may use acetaminophen (Tylenol) or ibuprofen (Motrin, Advil) to control pain, unless another medicine was prescribed. [ NOTE: If you have chronic liver or kidney disease or ever had a stomach ulcer or GI bleeding, talk with your doctor before using these medicines.] If you have signs of an infection, an antibiotic will be given. Take it as directed. Follow-Up as directed with a dentist. Your pain may go away with the treatment given. However, only a dentist can fully evaluate and treat the cause and prevent the pain from coming back again. TOOTHACHE IS A SIGN OF DISEASE IN YOUR TOOTH AND SHOULD BE EXAMINED AND TREATED BY A DENTIST. Get Prompt Medical Attention if any of the following occur: Your face becomes swollen or red Pain worsens or spreads to the neck Fever over 100.4 F (38.0 C) Unusual drowsiness; headache or stiff neck; weakness or fainting Pus drains from the tooth Difficulty swallowing or breathing Hydrocodone Bitartrate, Acetaminophen Oral tablet What is this medicine? ACETAMINOPHEN; HYDROCODONE (a set a NOLVIA bharati fen; sirisha droe KODonovan done) is a pain reliever. It is used to treat mild to moderate pain. How should I use this medicine? Take this medicine by mouth. Swallow it with a full glass of water. Follow the directions on the prescription label. If the medicine upsets your stomach, take the medicine with food or milk. Do not take more than you are told to take. Talk to your energy efficiency engineer regarding the use of this medicine in children. This medicine is not approved for use in children. What side effects may I notice from receiving this medicine? Side effects that you should report to your doctor or health child adolescent care as soon as possible: allergic reactions like skin rash, itching or hives, swelling of the face, lips, or tongue breathing problems confusion feeling faint or lightheaded, falls stomach pain yellowing of the eyes or skin Side effects that usually do not require medical attention (report to your doctor or health child adolescent care if they continue or are bothersome): nausea, vomiting stomach upset What may interact with this medicine? alcohol antihistamines isoniazid medicines for depression, anxiety, or psychotic disturbances medicines for sleep muscle relaxants naltrexone narcotic medicines (opiates) for pain phenobarbital ritonavir tramadol What if I miss a dose? If you miss a dose, take it as soon as you can. If it is almost time for your next dose, take only that dose. Do not take double or extra doses. Where should I keep my medicine? Keep out of the reach of children. This medicine can be abused. Keep your medicine in a safe place to protect it from theft. Do not share this medicine with anyone. Selling or giving away this medicine is dangerous and against the law. Store at room temperature between 15 and 30 degrees C (59 and 86 degrees F). Protect from light. Keep container tightly closed. Throw away any unused medicine after the expiration date. Discard unused medicine and used packaging carefully. Pets and children can be harmed if they find used or lost packages. What should I tell my health care provider before I take this medicine? They need to know if you have any of these conditions: brain tumor Crohn's disease, inflammatory bowel disease, or ulcerative colitis drink more than 3 alcohol-containing drinks per day drug abuse or addiction head injury heart or circulation problems kidney disease or problems going to the bathroom liver disease lung disease, asthma, or breathing problems an unusual or allergic reaction to acetaminophen, hydrocodone, other opioid analgesics, other medicines, foods, dyes, or preservatives or trying to get breast-feeding What should I watch for while using this medicine? Tell your doctor or health child adolescent care if your pain does not go away, if it gets worse, or if you have new or a different type of pain. You may develop tolerance to the medicine. Tolerance means that you will need a higher dose of the medicine for pain relief. Tolerance is normal and is expected if you take the medicine for a long time. Do not suddenly stop taking your medicine because you may develop a severe reaction. Your body becomes used to the medicine. This does NOT mean you are addicted. Addiction is a behavior related to getting and using a drug for a non-medical reason. If you have pain, you have a medical reason to take pain medicine. Your doctor will tell you how much medicine to take. If your doctor wants you to stop the medicine, the dose will be slowly lowered over time to avoid any side effects. You may get drowsy or dizzy when you first start taking the medicine or change doses. Do not drive, use machinery, or do anything that may be dangerous until you know how the medicine affects you. Stand or sit up slowly. There are different types of narcotic medicines (opiates) for pain. If you take more than one type at the same time, you may have more side effects. Give your health care provider a list of all medicines you use. Your doctor will tell you how much medicine to take. Do not take more medicine than directed. Call emergency for help if you have problems breathing. The medicine will cause constipation. Try to have a bowel movement at least every 2 to 3 days. If you do not have a bowel movement for 3 days, call your doctor or health child adolescent care. Too much acetaminophen can be very dangerous. Do not take Tylenol (acetaminophen) or medicines that contain acetaminophen with this medicine. Many non-prescription medicines contain acetaminophen. Always read the labels carefully. Clindamycin Hydrochloride Oral capsule What is this medicine? CLINDAMYCIN (KLIN da MARGO sin) is a lincosamide antibiotic. It is used to treat certain kinds of bacterial infections. It will not work for colds, flu, or other viral infections. How should I use this medicine? Take this medicine by mouth with a full glass of water. Follow the directions on the prescription label. You can take this medicine with food or on an empty stomach. If the medicine upsets your stomach, take it with food. Take your medicine at regular intervals. Do not take your medicine more often than directed. Take all of your medicine as directed even if you think your are better. Do not skip doses or stop your medicine early. Talk to your energy efficiency engineer regarding the use of this medicine in children. Special care may be needed. What side effects may I notice from receiving this medicine? Side effects that you should report to your doctor or health child adolescent care as soon as possible: allergic reactions like skin rash, itching or hives, swelling of the face, lips, or tongue dark urine pain on swallowing redness, blistering, peeling or loosening of the skin, including inside the mouth unusual bleeding or bruising unusually weak or tired yellowing of eyes or skin Side effects that usually do not require medical attention (report to your doctor or health child adolescent care if they continue or are bothersome): diarrhea itching in the rectal or genital area joint pain nausea, vomiting stomach pain What may interact with this medicine? chloramphenicol erythromycin kaolin products What if I miss a dose? If you miss a dose, take it as soon as you can. If it is almost time for your next dose, take only that dose. Do not take double or extra doses. Where should I keep my medicine? Keep out of the reach of children. Store at room temperature between 20 and 25 degrees C (68 and 77 degrees F). Throw away any unused medicine after the expiration date. What should I tell my health care provider before I take this medicine? They need to know if you have any of these conditions: kidney disease liver disease stomach problems like colitis an unusual or allergic reaction to clindamycin, lincomycin, or other medicines, foods, dyes like tartrazine or preservatives or trying to get breast-feeding What should I watch for while using this medicine? Tell your doctor or healthcare professional if your symptoms do not start to get better or if they get worse. Do not treat diarrhea with over the counter products. Contact your doctor if you have diarrhea that lasts more than 2 days or if it is severe and watery. You have been given the following additional information: Dental Cavity Dental Pain Hydrocodone Bitartrate, Acetaminophen Oral tablet Clindamycin Hydrochloride Oral capsule (Electronically signed by Miguel Banegas Dr. 10/24/2016 1:48)
--- NOTE | 2016-10-25 09:19 | ED MED RECONCILIATION SUMMARY ---
Patient: TESSIE CONRAD Medication Reconciliation Report [facility] VisitID: [id number] [address] [place] [address] 41y, M Registration Date/Time: 10/24/2016 Weight: 97.9 kg Height/Length: 73 in. BMI: 28.5 ALLERGIES: Penicillin The patient's Home Medications are listed below: CONTINUE TAKING THE FOLLOWING MEDICATIONS: Aspirin Oral Lantus Subcutaneous NovoLOG Subcutaneous Omeprazole Oral Simvastatin Oral The source(s) of the original Home Medication information: patient The following Medications were given to the patient in the Emergency Department: Hydrocodone-APAP [PO] PO 1 tab, administered: 10/24/2016 1:34:00 AM Cleocin [PO] PO 300 mg, administered: 10/24/2016 1:35:00 AM The following Medications were prescribed to the patient: Hydrocodone/APAP 5mg / 325mg: take 1 orally every 6 hours as needed for pain. Dispense fifteen (15). No refill. -- Miguel Banegas Dr. Cleocin 300 mg: take 1 capsule orally every 6 hours for 7 days. No refill. Substitution is permissible. -- Miguel Banegas Dr.
--- NOTE | 2016-10-25 09:19 | ED DISCHARGE INSTRUCTIONS ---
Patient: TESSIE CONRAD General Instructions VisitID: [id number] [place] [address] 41y, M Registration Date/Time: 10/24/2016 Dental caries (extensive decay) INSTRUCTIONS Your Current Medications: CONTINUE TAKING THE FOLLOWING MEDICATIONS: Aspirin Oral. Lantus Subcutaneous. NovoLOG Subcutaneous. Omeprazole Oral. Simvastatin Oral. Prescription Medications: Hydrocodone/APAP 5mg / 325mg: take 1 orally every 6 hours as needed for pain. Dispense fifteen (15). No refill. Cleocin 300 mg: take 1 capsule orally every 6 hours for 7 days. No refill. Substitution is permissible. Follow-up: Screening today revealed the patient's blood pressure to be in the hypertensive range. The patient should follow up with a primary care provider for blood pressure management. Follow-up with: [facility], , , , , , Follow up in about two days. Call for an appointment. ADDITIONAL INFORMATION Dental Cavity A dental cavity is a pit or crater in the enamel surface of the tooth. This exposes the sensitive inner layer of the tooth and causes pain. If untreated, the cavity will get bigger and may cause an infection or abscess in the root of the tooth. An infection in the tooth is a much more serious problem and may require a root canal or removal of the entire tooth. The tooth pain may be made worse by drinking hot or cold fluids. It may spread from the tooth to the ear or jaw on the same side. Home Care: Avoid hot and cold foods, and liquids since your tooth may be sensitive to temperature changes. If your tooth is chipped or cracked, or if there is a large open cavity, apply OIL OF CLOVES (available rxtp-onh-waajspv in drug stores) directly to the tooth to reduce pain. Some pharmacies carry an nfpi-hck-vuvchou "toothache kit." This contains oil of cloves and a paste, which can be applied over the exposed tooth to decrease sensitivity. An ice pack on your jaw over the sore area may help to reduce pain. You may use acetaminophen (Tylenol) or ibuprofen (Motrin, Advil) to control pain, unless another pain medicine was prescribed. [ NOTE: If you have liver disease or ever had a stomach ulcer, talk with your doctor before using these medicines.] If you have signs of an infection, an antibiotic will be given. Take it as directed. Follow-Up with your dentist as directed. Although your pain may go away with the treatment given, only a dentist can fully evaluate and treat this problem to prevent further tooth damage. Get Prompt Medical Attention if any of the following occur: Redness or swelling of the face Pain worsens or spreads to the neck Fever over 100.5 F (38C) Unusual drowsiness; headache or stiff neck; weakness or fainting Pus drains from the tooth or gum Difficulty swallowing or breathing Dental Pain A crack or cavity in the tooth, which exposes the sensitive inner area of the tooth can cause tooth pain. An infection in the gum or the root of the tooth can cause pain and swelling. The pain is often made worse by drinking hot or cold fluids, or biting on hard foods. Pain may spread from the tooth to the ear or jaw on the same side. Home Care: Avoid hot and cold foods and liquids since your tooth may be sensitive to temperature changes. If your tooth is chipped or cracked, or if there is a large open cavity, apply OIL OF CLOVES (available koyg-jfd-tgputku in drug stores) directly to the tooth to reduce pain. Some pharmacies carry an bwis-ecx-puyymob "toothache kit." This contains a paste, which can be applied over the exposed tooth to decrease sensitivity. A cold pack on your jaw over the sore area may help reduce pain. You may use acetaminophen (Tylenol) or ibuprofen (Motrin, Advil) to control pain, unless another medicine was prescribed. [ NOTE: If you have chronic liver or kidney disease or ever had a stomach ulcer or GI bleeding, talk with your doctor before using these medicines.] If you have signs of an infection, an antibiotic will be given. Take it as directed. Follow-Up as directed with a dentist. Your pain may go away with the treatment given. However, only a dentist can fully evaluate and treat the cause and prevent the pain from coming back again. TOOTHACHE IS A SIGN OF DISEASE IN YOUR TOOTH AND SHOULD BE EXAMINED AND TREATED BY A DENTIST. Get Prompt Medical Attention if any of the following occur: Your face becomes swollen or red Pain worsens or spreads to the neck Fever over 100.4 F (38.0 C) Unusual drowsiness; headache or stiff neck; weakness or fainting Pus drains from the tooth Difficulty swallowing or breathing Hydrocodone Bitartrate, Acetaminophen Oral tablet What is this medicine? ACETAMINOPHEN; HYDROCODONE (a set a NOLVIA bharati fen; sirisha droe KODonovan done) is a pain reliever. It is used to treat mild to moderate pain. How should I use this medicine? Take this medicine by mouth. Swallow it with a full glass of water. Follow the directions on the prescription label. If the medicine upsets your stomach, take the medicine with food or milk. Do not take more than you are told to take. Talk to your concrete mixer loader truck mounted regarding the use of this medicine in children. This medicine is not approved for use in children. What side effects may I notice from receiving this medicine? Side effects that you should report to your doctor or health patient care as soon as possible: allergic reactions like skin rash, itching or hives, swelling of the face, lips, or tongue breathing problems confusion feeling faint or lightheaded, falls stomach pain yellowing of the eyes or skin Side effects that usually do not require medical attention (report to your doctor or health patient care if they continue or are bothersome): nausea, vomiting stomach upset What may interact with this medicine? alcohol antihistamines isoniazid medicines for depression, anxiety, or psychotic disturbances medicines for sleep muscle relaxants naltrexone narcotic medicines (opiates) for pain phenobarbital ritonavir tramadol What if I miss a dose? If you miss a dose, take it as soon as you can. If it is almost time for your next dose, take only that dose. Do not take double or extra doses. Where should I keep my medicine? Keep out of the reach of children. This medicine can be abused. Keep your medicine in a safe place to protect it from theft. Do not share this medicine with anyone. Selling or giving away this medicine is dangerous and against the law. Store at room temperature between 15 and 30 degrees C (59 and 86 degrees F). Protect from light. Keep container tightly closed. Throw away any unused medicine after the expiration date. Discard unused medicine and used packaging carefully. Pets and children can be harmed if they find used or lost packages. What should I tell my health care provider before I take this medicine? They need to know if you have any of these conditions: brain tumor Crohn's disease, inflammatory bowel disease, or ulcerative colitis drink more than 3 alcohol-containing drinks per day drug abuse or addiction head injury heart or circulation problems kidney disease or problems going to the bathroom liver disease lung disease, asthma, or breathing problems an unusual or allergic reaction to acetaminophen, hydrocodone, other opioid analgesics, other medicines, foods, dyes, or preservatives or trying to get breast-feeding What should I watch for while using this medicine? Tell your doctor or health patient care if your pain does not go away, if it gets worse, or if you have new or a different type of pain. You may develop tolerance to the medicine. Tolerance means that you will need a higher dose of the medicine for pain relief. Tolerance is normal and is expected if you take the medicine for a long time. Do not suddenly stop taking your medicine because you may develop a severe reaction. Your body becomes used to the medicine. This does NOT mean you are addicted. Addiction is a behavior related to getting and using a drug for a non-medical reason. If you have pain, you have a medical reason to take pain medicine. Your doctor will tell you how much medicine to take. If your doctor wants you to stop the medicine, the dose will be slowly lowered over time to avoid any side effects. You may get drowsy or dizzy when you first start taking the medicine or change doses. Do not drive, use machinery, or do anything that may be dangerous until you know how the medicine affects you. Stand or sit up slowly. There are different types of narcotic medicines (opiates) for pain. If you take more than one type at the same time, you may have more side effects. Give your health care provider a list of all medicines you use. Your doctor will tell you how much medicine to take. Do not take more medicine than directed. Call emergency for help if you have problems breathing. The medicine will cause constipation. Try to have a bowel movement at least every 2 to 3 days. If you do not have a bowel movement for 3 days, call your doctor or health patient care. Too much acetaminophen can be very dangerous. Do not take Tylenol (acetaminophen) or medicines that contain acetaminophen with this medicine. Many non-prescription medicines contain acetaminophen. Always read the labels carefully. Clindamycin Hydrochloride Oral capsule What is this medicine? CLINDAMYCIN (KLIN da MARGO sin) is a lincosamide antibiotic. It is used to treat certain kinds of bacterial infections. It will not work for colds, flu, or other viral infections. How should I use this medicine? Take this medicine by mouth with a full glass of water. Follow the directions on the prescription label. You can take this medicine with food or on an empty stomach. If the medicine upsets your stomach, take it with food. Take your medicine at regular intervals. Do not take your medicine more often than directed. Take all of your medicine as directed even if you think your are better. Do not skip doses or stop your medicine early. Talk to your concrete mixer loader truck mounted regarding the use of this medicine in children. Special care may be needed. What side effects may I notice from receiving this medicine? Side effects that you should report to your doctor or health patient care as soon as possible: allergic reactions like skin rash, itching or hives, swelling of the face, lips, or tongue dark urine pain on swallowing redness, blistering, peeling or loosening of the skin, including inside the mouth unusual bleeding or bruising unusually weak or tired yellowing of eyes or skin Side effects that usually do not require medical attention (report to your doctor or health patient care if they continue or are bothersome): diarrhea itching in the rectal or genital area joint pain nausea, vomiting stomach pain What may interact with this medicine? chloramphenicol erythromycin kaolin products What if I miss a dose? If you miss a dose, take it as soon as you can. If it is almost time for your next dose, take only that dose. Do not take double or extra doses. Where should I keep my medicine? Keep out of the reach of children. Store at room temperature between 20 and 25 degrees C (68 and 77 degrees F). Throw away any unused medicine after the expiration date. What should I tell my health care provider before I take this medicine? They need to know if you have any of these conditions: kidney disease liver disease stomach problems like colitis an unusual or allergic reaction to clindamycin, lincomycin, or other medicines, foods, dyes like tartrazine or preservatives or trying to get breast-feeding What should I watch for while using this medicine? Tell your doctor or healthcare professional if your symptoms do not start to get better or if they get worse. Do not treat diarrhea with over the counter products. Contact your doctor if you have diarrhea that lasts more than 2 days or if it is severe and watery. You have been given the following additional information: Dental Cavity Dental Pain Hydrocodone Bitartrate, Acetaminophen Oral tablet Clindamycin Hydrochloride Oral capsule (Electronically signed by Miguel Banegas Dr. 10/24/2016 1:48)
--- NOTE | 2016-10-25 09:19 | ED MED RECONCILIATION SUMMARY ---
Patient: TESSIE CONRAD Medication Reconciliation Report [facility] VisitID: [id number] [address] [place] [address] 41y, M Registration Date/Time: 10/24/2016 Weight: 97.9 kg Height/Length: 73 in. BMI: 28.5 ALLERGIES: Penicillin The patient's Home Medications are listed below: CONTINUE TAKING THE FOLLOWING MEDICATIONS: Aspirin Oral Lantus Subcutaneous NovoLOG Subcutaneous Omeprazole Oral Simvastatin Oral The source(s) of the original Home Medication information: patient The following Medications were given to the patient in the Emergency Department: Hydrocodone-APAP [PO] PO 1 tab, administered: 10/24/2016 1:34:00 AM Cleocin [PO] PO 300 mg, administered: 10/24/2016 1:35:00 AM The following Medications were prescribed to the patient: Hydrocodone/APAP 5mg / 325mg: take 1 orally every 6 hours as needed for pain. Dispense fifteen (15). No refill. -- Miguel Banegas Dr. Cleocin 300 mg: take 1 capsule orally every 6 hours for 7 days. No refill. Substitution is permissible. -- Miguel Banegas Dr.
== END 2016-10-24 02:00 | disposition home or self-care (01) ==
LOC: ED SRH 01:10
DX: K02.9 Dental caries, unspecified (principal); E11.9 Type 2 diabetes mellitus without complications; F17.210 Nicotine dependence, cigarettes, uncomplicated

== ENCOUNTER 2016-12-04 23:15 | Emergency (ER) | payer OTHER ==
--- NOTE | 2016-12-05 00:25 | ED ORDER SUMMARY ---
..... Patient: TESSIE CONRAD OrderSheet [facility] VisitID: [id number] [address] [place] [address] 41y, M Registration Date/Time: 12/04/2016 ORDER SHEET Weight: 97.0 kg (stated) Allergies: Penicillin GENERAL ORDERS: MEDICATION ORDERS: Oxycodone-APAP PO 10/650 mg (NOW) (00:23 12/05/2016 Noé ALVAREZ) (0:33 Tosha R.N.) Cleocin PO 300 mg (NOW) (00:24 12/05/2016 Noé ALVAREZ) (0:33 Tosha R.N.) IV FLUIDS: ORDER SHEET NOTES: [Electronically signed by Chayo Irving R.N. (06:06 12/05/2016)] [Electronically signed by Tyrese Ashford MD (23:30 12/07/2016)] [Electronically locked/signed by Chayo Irving R.N. (06:06 12/05/2016)]
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
--- NOTE | 2016-12-05 00:25 | ED ORDER SUMMARY ---
..... Patient: TESSIE CONRAD OrderSheet [facility] VisitID: [id number] [address] [place] [address] 41y, M Registration Date/Time: 12/04/2016 ORDER SHEET Weight: 97.0 kg (stated) Allergies: Penicillin GENERAL ORDERS: MEDICATION ORDERS: Oxycodone-APAP PO 10/650 mg (NOW) (00:23 12/05/2016 Noé ALVAREZ) (0:33 Tosha R.N.) Cleocin PO 300 mg (NOW) (00:24 12/05/2016 Noé ALVAREZ) (0:33 Tosha R.N.) IV FLUIDS: ORDER SHEET NOTES: [Electronically signed by Chayo Irving R.N. (06:06 12/05/2016)] [Electronically signed by Tyrese Ashford MD (23:30 12/07/2016)] [Electronically locked/signed by Chayo Irving R.N. (06:06 12/05/2016)]
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
--- NOTE | 2016-12-07 23:30 | ED MED RECONCILIATION SUMMARY ---
Patient: TESSIE CONRAD Medication Reconciliation Report [facility] VisitID: [id number] [address] [place] [address] 41y, M Registration Date/Time: 12/04/2016 Weight: 97.0 kg Height/Length: 72 in. BMI: 29.0 ALLERGIES: Penicillin The patient's Home Medications are listed below: THE FOLLOWING MEDICATIONS NEED TO BE RECONCILED: Aspirin Oral Lantus Subcutaneous NovoLOG Subcutaneous Omeprazole Oral Simvastatin Oral The source(s) of the original Home Medication information: Not obtained. The following Medications were given to the patient in the Emergency Department: Cleocin [PO] PO 300 mg, administered: 12/05/2016 12:28:00 AM Oxycodone-APAP [PO] PO 2 tab, administered: 12/05/2016 12:28:00 AM The following Medications were prescribed to the patient: Cleocin 300 mg: take 1 capsule orally every 6 hours for 7 days. No refills. Substitution is permissible. -- Tyrese Ashford MD Oxycodone/APAP 5 mg/325 mg: take 1-2 tablets orally every 4 hours as needed for pain. Dispense twenty (20). No refill. -- Tyrese Ashford MD
--- NOTE | 2016-12-07 23:30 | ED MAR SUMMARY ---
..... Medication Administration Record [facility] [address] [place] [address] Patient: TESSIE CONRAD Visit ID: [id number] 41y, M Weight: 97.0 kg Height/Length: 72 in BMI: 29 ALLERGIES: Penicillin Given 00:12/05/2016 Aleks Julio RJozefNJozef Medication Administered: OXYCODONE-APAP [PO] (OXYCODONE-ACETAMINOPHEN), Dose: 2 tab 5/325 mg Tablets PO. Medication Ordered: Oxycodone-APAP PO 10/650 mg (NOW). Given :12/05/2016 Aleks Julio, RJozefN. Medication Administered: CLEOCIN [PO] (CLINDAMYCIN HCL), Dose: 300 mg Capsules PO. Medication Ordered: Cleocin PO 300 mg (NOW).
--- NOTE | 2016-12-07 23:30 | ED MED RECONCILIATION SUMMARY ---
Patient: TESSIE CONRAD Medication Reconciliation Report [facility] VisitID: [id number] [address] [place] [address] 41y, M Registration Date/Time: 12/04/2016 Weight: 97.0 kg Height/Length: 72 in. BMI: 29.0 ALLERGIES: Penicillin The patient's Home Medications are listed below: THE FOLLOWING MEDICATIONS NEED TO BE RECONCILED: Aspirin Oral Lantus Subcutaneous NovoLOG Subcutaneous Omeprazole Oral Simvastatin Oral The source(s) of the original Home Medication information: Not obtained. The following Medications were given to the patient in the Emergency Department: Cleocin [PO] PO 300 mg, administered: 12/05/2016 12:28:00 AM Oxycodone-APAP [PO] PO 2 tab, administered: 12/05/2016 12:28:00 AM The following Medications were prescribed to the patient: Cleocin 300 mg: take 1 capsule orally every 6 hours for 7 days. No refills. Substitution is permissible. -- Tyrese Ashford MD Oxycodone/APAP 5 mg/325 mg: take 1-2 tablets orally every 4 hours as needed for pain. Dispense twenty (20). No refill. -- Tyrese Ashford MD
--- NOTE | 2016-12-07 23:30 | ED DISCHARGE INSTRUCTIONS ---
Patient: TESSIE CONRAD General Instructions [facility] VisitID: [id number] [place] [address] 41y, M Registration Date/Time: 12/04/2016 Severe dental pain. Dental caries (localized) INSTRUCTIONS Drink plenty of fluids. Warnings: Further evaluation is necessary. SEDATIVE MEDICATION: You were given sedative medication during your visit. Do not drive or operate dangerous machinery. Prescription Medications: Cleocin 300 mg: take 1 capsule orally every 6 hours for 7 days. No refills. Substitution is permissible. Oxycodone/APAP 5 mg/325 mg: take 1-2 tablets orally every 4 hours as needed for pain. Dispense twenty (20). No refill. Follow-up: Follow up with a dentist. Call for the next available appointment. Understanding of the discharge instructions verbalized by patient. ADDITIONAL INFORMATION Dental Pain A crack or cavity in the tooth, which exposes the sensitive inner area of the tooth can cause tooth pain. An infection in the gum or the root of the tooth can cause pain and swelling. The pain is often made worse by drinking hot or cold fluids, or biting on hard foods. Pain may spread from the tooth to the ear or jaw on the same side. Home Care: Avoid hot and cold foods and liquids since your tooth may be sensitive to temperature changes. If your tooth is chipped or cracked, or if there is a large open cavity, apply OIL OF CLOVES (available dxqi-rtq-uhszmdj in drug stores) directly to the tooth to reduce pain. Some pharmacies carry an guat-iie-duycotw "toothache kit." This contains a paste, which can be applied over the exposed tooth to decrease sensitivity. A cold pack on your jaw over the sore area may help reduce pain. You may use acetaminophen (Tylenol) or ibuprofen (Motrin, Advil) to control pain, unless another medicine was prescribed. [ NOTE: If you have chronic liver or kidney disease or ever had a stomach ulcer or GI bleeding, talk with your doctor before using these medicines.] If you have signs of an infection, an antibiotic will be given. Take it as directed. Follow-Up as directed with a dentist. Your pain may go away with the treatment given. However, only a dentist can fully evaluate and treat the cause and prevent the pain from coming back again. TOOTHACHE IS A SIGN OF DISEASE IN YOUR TOOTH AND SHOULD BE EXAMINED AND TREATED BY A DENTIST. Get Prompt Medical Attention if any of the following occur: Your face becomes swollen or red Pain worsens or spreads to the neck Fever over 100.4 F (38.0 C) Unusual drowsiness; headache or stiff neck; weakness or fainting Pus drains from the tooth Difficulty swallowing or breathing Dental Cavity A dental cavity is a pit or crater in the enamel surface of the tooth. This exposes the sensitive inner layer of the tooth and causes pain. If untreated, the cavity will get bigger and may cause an infection or abscess in the root of the tooth. An infection in the tooth is a much more serious problem and may require a root canal or removal of the entire tooth. The tooth pain may be made worse by drinking hot or cold fluids. It may spread from the tooth to the ear or jaw on the same side. Home Care: Avoid hot and cold foods, and liquids since your tooth may be sensitive to temperature changes. If your tooth is chipped or cracked, or if there is a large open cavity, apply OIL OF CLOVES (available fvho-tcs-vppvujw in drug stores) directly to the tooth to reduce pain. Some pharmacies carry an xtgl-buc-xinfcjz "toothache kit." This contains oil of cloves and a paste, which can be applied over the exposed tooth to decrease sensitivity. An ice pack on your jaw over the sore area may help to reduce pain. You may use acetaminophen (Tylenol) or ibuprofen (Motrin, Advil) to control pain, unless another pain medicine was prescribed. [ NOTE: If you have liver disease or ever had a stomach ulcer, talk with your doctor before using these medicines.] If you have signs of an infection, an antibiotic will be given. Take it as directed. Follow-Up with your dentist as directed. Although your pain may go away with the treatment given, only a dentist can fully evaluate and treat this problem to prevent further tooth damage. Get Prompt Medical Attention if any of the following occur: Redness or swelling of the face Pain worsens or spreads to the neck Fever over 100.5 F (38C) Unusual drowsiness; headache or stiff neck; weakness or fainting Pus drains from the tooth or gum Difficulty swallowing or breathing Dental Abscess A dental abscess is an infection of the tooth socket. It often starts with a crack or cavity in the tooth. A pocket of pus forms between the tooth and the bone. The infection causes pain and swelling of the gum, cheek or jaw. The pain is often made worse by drinking hot or cold fluids, or biting on hard foods. Pain may be felt in the facial sinus or in the ear. A severe infection can interfere with swallowing and breathing. In the emergency department or clinic, you will be started on an antibiotic. However, final treatment requires drainage of the pus. This can be done by removing the tooth or performing a root canal. A root canal is done by an oral surgeon and involves drilling an opening in the tooth to drain the pus. After the infection has healed, a crown is placed over the tooth. Home care The following guidelines will help you care for your abscess at home: Avoid hot and cold foods and liquids since your tooth may be sensitive to temperature changes. If your tooth is chipped or cracked, or if there is a large open cavity, applyoil of cloves(available ldbv-ndq-exrqleq in drug stores) directly to the tooth to reduce pain. Some pharmacies carry an vxtm-urm-yldemhd "toothache kit". This contains oil of cloves and a paste, which can be applied over the exposed tooth to decrease sensitivity. Apply an ice pack (ice cubes in a plastic bag, wrapped in a towel) over the injured area for 20 minutes every 12 hours the first day for pain relief. Continue this 34 times a day until the pain and swelling goes away. You may use acetaminophen or ibuprofen to control pain, unless another medicine was prescribed. If you have chronic liver or kidney disease or ever had a stomach ulcer or GI bleeding, talk with your doctor before using these medicines. An antibiotic will be prescribed. Take it as directed until completed, even if you are feeling better sooner. Follow-up care Follow up as directed with a dentist or oral surgeon. Even though your pain may improve with the treatment given today, only a dentist or oral surgeon can provide full treatment for this problem. When to seek medical care Get prompt medical attention or contact your doctor if any of the following occur: Your face or eyelid becomes swollen or red Pain worsens or spreads to the neck Fever over 100.4F (38.0C) Unusual drowsiness; headache or stiff neck; weakness, or fainting Pus drains from the gum or tooth Difficulty talking, swallowing or breathing Unable to open your mouth wide Dental Pain A crack or cavity in the tooth, which exposes the sensitive inner area of the tooth can cause tooth pain. An infection in the gum or the root of the tooth can cause pain and swelling. The pain is often made worse by drinking hot or cold fluids, or biting on hard foods. Pain may spread from the tooth to the ear or jaw on the same side. Home Care: Avoid hot and cold foods and liquids since your tooth may be sensitive to temperature changes. If your tooth is chipped or cracked, or if there is a large open cavity, apply OIL OF CLOVES (available kkrv-lit-opujhyr in drug stores) directly to the tooth to reduce pain. Some pharmacies carry an gxrd-psv-jqnfhsm "toothache kit." This contains a paste, which can be applied over the exposed tooth to decrease sensitivity. A cold pack on your jaw over the sore area may help reduce pain. You may use acetaminophen (Tylenol) or ibuprofen (Motrin, Advil) to control pain, unless another medicine was prescribed. [ NOTE: If you have chronic liver or kidney disease or ever had a stomach ulcer or GI bleeding, talk with your doctor before using these medicines.] If you have signs of an infection, an antibiotic will be given. Take it as directed. Follow-Up as directed with a dentist. Your pain may go away with the treatment given. However, only a dentist can fully evaluate and treat the cause and prevent the pain from coming back again. TOOTHACHE IS A SIGN OF DISEASE IN YOUR TOOTH AND SHOULD BE EXAMINED AND TREATED BY A DENTIST. Get Prompt Medical Attention if any of the following occur: Your face becomes swollen or red Pain worsens or spreads to the neck Fever over 100.4 F (38.0 C) Unusual drowsiness; headache or stiff neck; weakness or fainting Pus drains from the tooth Difficulty swallowing or breathing Oxycodone Hydrochloride, Acetaminophen Oral tablet What is this medicine? ACETAMINOPHEN; OXYCODONE (a set a NOLVIA bharati fen; ox i KOE done) is a pain reliever. It is used to treat mild to moderate pain. How should I use this medicine? Take this medicine by mouth with a full glass of water. Follow the directions on the prescription label. Take your medicine at regular intervals. Do not take your medicine more often than directed. Talk to your dressmaker garment fitter regarding the use of this medicine in children. Special care may be needed. Patients over 65 years old may have a stronger reaction and need a smaller dose. What side effects may I notice from receiving this medicine? Side effects that you should report to your doctor or health care rep as soon as possible: allergic reactions like skin rash, itching or hives, swelling of the face, lips, or tongue breathing difficulties, wheezing confusion light headedness or fainting spells severe stomach pain yellowing of the skin or the whites of the eyes Side effects that usually do not require medical attention (report to your doctor or health care rep if they continue or are bothersome): dizziness drowsiness nausea vomiting What may interact with this medicine? alcohol antihistamines barbiturates like amobarbital, butalbital, butabarbital, methohexital, pentobarbital, phenobarbital, thiopental, and secobarbital benztropine drugs for bladder problems like solifenacin, trospium, oxybutynin, tolterodine, hyoscyamine, and methscopolamine drugs for breathing problems like ipratropium and tiotropium drugs for certain stomach or intestine problems like propantheline, homatropine methylbromide, glycopyrrolate, atropine, belladonna, and dicyclomine general anesthetics like etomidate, ketamine, nitrous oxide, propofol, desflurane, enflurane, halothane, isoflurane, and sevoflurane medicines for depression, anxiety, or psychotic disturbances medicines for sleep muscle relaxants naltrexone narcotic medicines (opiates) for pain phenothiazines like perphenazine, thioridazine, chlorpromazine, mesoridazine, fluphenazine, prochlorperazine, promazine, and trifluoperazine scopolamine tramadol trihexyphenidyl What if I miss a dose? If you miss a dose, take it as soon as you can. If it is almost time for your next dose, take only that dose. Do not take double or extra doses. Where should I keep my medicine? Keep out of the reach of children. This medicine can be abused. Keep your medicine in a safe place to protect it from theft. Do not share this medicine with anyone. Selling or giving away this medicine is dangerous and against the law. Store at room temperature between 20 and 25 degrees C (68 and 77 degrees F). Keep container tightly closed. Protect from light. This medicine may cause accidental overdose and if it is taken by other adults, children, or pets. Flush any unused medicine down the toilet to reduce the chance of harm. Do not use the medicine after the expiration date. What should I tell my health care provider before I take this medicine? They need to know if you have any of these conditions: brain tumor Crohn's disease, inflammatory bowel disease, or ulcerative colitis drink more than 3 alcohol containing drinks per day drug abuse or addiction head injury heart or circulation problems kidney disease or problems going to the bathroom liver disease lung disease, asthma, or breathing problems an unusual or allergic reaction to acetaminophen, oxycodone, other opioid analgesics, other medicines, foods, dyes, or preservatives or trying to get breast-feeding What should I watch for while using this medicine? Tell your doctor or health care rep if your pain does not go away, if it gets worse, or if you have new or a different type of pain. You may develop tolerance to the medicine. Tolerance means that you will need a higher dose of the medication for pain relief. Tolerance is normal and is expected if you take this medicine for a long time. Do not suddenly stop taking your medicine because you may develop a severe reaction. Your body becomes used to the medicine. This does NOT mean you are addicted. Addiction is a behavior related to getting and using a drug for a non-medical reason. If you have pain, you have a medical reason to take pain medicine. Your doctor will tell you how much medicine to take. If your doctor wants you to stop the medicine, the dose will be slowly lowered over time to avoid any side effects. You may get drowsy or dizzy. Do not drive, use machinery, or do anything that needs mental alertness until you know how this medicine affects you. Do not stand or sit up quickly, especially if you are an older patient. This reduces the risk of dizzy or fainting spells. Alcohol may interfere with the effect of this medicine. Avoid alcoholic drinks. There are different types of narcotic medicines (opiates) for pain. If you take more than one type at the same time, you may have more side effects. Give your health care provider a list of all medicines you use. Your doctor will tell you how much medicine to take. Do not take more medicine than directed. Call emergency for help if you have problems breathing. The medicine will cause constipation. Try to have a bowel movement at least every 2 to 3 days. If you do not have a bowel movement for 3 days, call your doctor or health care rep. Do not take Tylenol (acetaminophen) or medicines that have acetaminophen with this medicine. Too much acetaminophen can be very dangerous. Many nonprescription medicines contain acetaminophen. Always read the labels carefully to avoid taking more acetaminophen. You have been given the following additional information: Dental Pain Dental Cavity Tooth Abscess Dental Pain Oxycodone Hydrochloride, Acetaminophen Oral tablet (Electronically signed by Tyrese Ashford MD 12/07/2016 23:30)
--- NOTE | 2016-12-07 23:30 | ED DISCHARGE INSTRUCTIONS ---
Patient: TESSIE CONRAD General Instructions [facility] VisitID: [id number] [place] [address] 41y, M Registration Date/Time: 12/04/2016 Severe dental pain. Dental caries (localized) INSTRUCTIONS Drink plenty of fluids. Warnings: Further evaluation is necessary. SEDATIVE MEDICATION: You were given sedative medication during your visit. Do not drive or operate dangerous machinery. Prescription Medications: Cleocin 300 mg: take 1 capsule orally every 6 hours for 7 days. No refills. Substitution is permissible. Oxycodone/APAP 5 mg/325 mg: take 1-2 tablets orally every 4 hours as needed for pain. Dispense twenty (20). No refill. Follow-up: Follow up with a dentist. Call for the next available appointment. Understanding of the discharge instructions verbalized by patient. ADDITIONAL INFORMATION Dental Pain A crack or cavity in the tooth, which exposes the sensitive inner area of the tooth can cause tooth pain. An infection in the gum or the root of the tooth can cause pain and swelling. The pain is often made worse by drinking hot or cold fluids, or biting on hard foods. Pain may spread from the tooth to the ear or jaw on the same side. Home Care: Avoid hot and cold foods and liquids since your tooth may be sensitive to temperature changes. If your tooth is chipped or cracked, or if there is a large open cavity, apply OIL OF CLOVES (available onjp-fdi-hpqanfn in drug stores) directly to the tooth to reduce pain. Some pharmacies carry an wabw-xkx-tigdsbq "toothache kit." This contains a paste, which can be applied over the exposed tooth to decrease sensitivity. A cold pack on your jaw over the sore area may help reduce pain. You may use acetaminophen (Tylenol) or ibuprofen (Motrin, Advil) to control pain, unless another medicine was prescribed. [ NOTE: If you have chronic liver or kidney disease or ever had a stomach ulcer or GI bleeding, talk with your doctor before using these medicines.] If you have signs of an infection, an antibiotic will be given. Take it as directed. Follow-Up as directed with a dentist. Your pain may go away with the treatment given. However, only a dentist can fully evaluate and treat the cause and prevent the pain from coming back again. TOOTHACHE IS A SIGN OF DISEASE IN YOUR TOOTH AND SHOULD BE EXAMINED AND TREATED BY A DENTIST. Get Prompt Medical Attention if any of the following occur: Your face becomes swollen or red Pain worsens or spreads to the neck Fever over 100.4 F (38.0 C) Unusual drowsiness; headache or stiff neck; weakness or fainting Pus drains from the tooth Difficulty swallowing or breathing Dental Cavity A dental cavity is a pit or crater in the enamel surface of the tooth. This exposes the sensitive inner layer of the tooth and causes pain. If untreated, the cavity will get bigger and may cause an infection or abscess in the root of the tooth. An infection in the tooth is a much more serious problem and may require a root canal or removal of the entire tooth. The tooth pain may be made worse by drinking hot or cold fluids. It may spread from the tooth to the ear or jaw on the same side. Home Care: Avoid hot and cold foods, and liquids since your tooth may be sensitive to temperature changes. If your tooth is chipped or cracked, or if there is a large open cavity, apply OIL OF CLOVES (available clhx-wej-nixhntt in drug stores) directly to the tooth to reduce pain. Some pharmacies carry an wnnp-fwz-dhkjgym "toothache kit." This contains oil of cloves and a paste, which can be applied over the exposed tooth to decrease sensitivity. An ice pack on your jaw over the sore area may help to reduce pain. You may use acetaminophen (Tylenol) or ibuprofen (Motrin, Advil) to control pain, unless another pain medicine was prescribed. [ NOTE: If you have liver disease or ever had a stomach ulcer, talk with your doctor before using these medicines.] If you have signs of an infection, an antibiotic will be given. Take it as directed. Follow-Up with your dentist as directed. Although your pain may go away with the treatment given, only a dentist can fully evaluate and treat this problem to prevent further tooth damage. Get Prompt Medical Attention if any of the following occur: Redness or swelling of the face Pain worsens or spreads to the neck Fever over 100.5 F (38C) Unusual drowsiness; headache or stiff neck; weakness or fainting Pus drains from the tooth or gum Difficulty swallowing or breathing Dental Abscess A dental abscess is an infection of the tooth socket. It often starts with a crack or cavity in the tooth. A pocket of pus forms between the tooth and the bone. The infection causes pain and swelling of the gum, cheek or jaw. The pain is often made worse by drinking hot or cold fluids, or biting on hard foods. Pain may be felt in the facial sinus or in the ear. A severe infection can interfere with swallowing and breathing. In the emergency department or clinic, you will be started on an antibiotic. However, final treatment requires drainage of the pus. This can be done by removing the tooth or performing a root canal. A root canal is done by an oral surgeon and involves drilling an opening in the tooth to drain the pus. After the infection has healed, a crown is placed over the tooth. Home care The following guidelines will help you care for your abscess at home: Avoid hot and cold foods and liquids since your tooth may be sensitive to temperature changes. If your tooth is chipped or cracked, or if there is a large open cavity, applyoil of cloves(available ydlx-vdw-orymytp in drug stores) directly to the tooth to reduce pain. Some pharmacies carry an iwqg-zzj-rgcdowy "toothache kit". This contains oil of cloves and a paste, which can be applied over the exposed tooth to decrease sensitivity. Apply an ice pack (ice cubes in a plastic bag, wrapped in a towel) over the injured area for 20 minutes every 12 hours the first day for pain relief. Continue this 34 times a day until the pain and swelling goes away. You may use acetaminophen or ibuprofen to control pain, unless another medicine was prescribed. If you have chronic liver or kidney disease or ever had a stomach ulcer or GI bleeding, talk with your doctor before using these medicines. An antibiotic will be prescribed. Take it as directed until completed, even if you are feeling better sooner. Follow-up care Follow up as directed with a dentist or oral surgeon. Even though your pain may improve with the treatment given today, only a dentist or oral surgeon can provide full treatment for this problem. When to seek medical care Get prompt medical attention or contact your doctor if any of the following occur: Your face or eyelid becomes swollen or red Pain worsens or spreads to the neck Fever over 100.4F (38.0C) Unusual drowsiness; headache or stiff neck; weakness, or fainting Pus drains from the gum or tooth Difficulty talking, swallowing or breathing Unable to open your mouth wide Dental Pain A crack or cavity in the tooth, which exposes the sensitive inner area of the tooth can cause tooth pain. An infection in the gum or the root of the tooth can cause pain and swelling. The pain is often made worse by drinking hot or cold fluids, or biting on hard foods. Pain may spread from the tooth to the ear or jaw on the same side. Home Care: Avoid hot and cold foods and liquids since your tooth may be sensitive to temperature changes. If your tooth is chipped or cracked, or if there is a large open cavity, apply OIL OF CLOVES (available ndnn-utw-ucuanvj in drug stores) directly to the tooth to reduce pain. Some pharmacies carry an dbqd-jym-lthpxal "toothache kit." This contains a paste, which can be applied over the exposed tooth to decrease sensitivity. A cold pack on your jaw over the sore area may help reduce pain. You may use acetaminophen (Tylenol) or ibuprofen (Motrin, Advil) to control pain, unless another medicine was prescribed. [ NOTE: If you have chronic liver or kidney disease or ever had a stomach ulcer or GI bleeding, talk with your doctor before using these medicines.] If you have signs of an infection, an antibiotic will be given. Take it as directed. Follow-Up as directed with a dentist. Your pain may go away with the treatment given. However, only a dentist can fully evaluate and treat the cause and prevent the pain from coming back again. TOOTHACHE IS A SIGN OF DISEASE IN YOUR TOOTH AND SHOULD BE EXAMINED AND TREATED BY A DENTIST. Get Prompt Medical Attention if any of the following occur: Your face becomes swollen or red Pain worsens or spreads to the neck Fever over 100.4 F (38.0 C) Unusual drowsiness; headache or stiff neck; weakness or fainting Pus drains from the tooth Difficulty swallowing or breathing Oxycodone Hydrochloride, Acetaminophen Oral tablet What is this medicine? ACETAMINOPHEN; OXYCODONE (a set a NOLVIA bharati fen; ox i KOE done) is a pain reliever. It is used to treat mild to moderate pain. How should I use this medicine? Take this medicine by mouth with a full glass of water. Follow the directions on the prescription label. Take your medicine at regular intervals. Do not take your medicine more often than directed. Talk to your health data administrator regarding the use of this medicine in children. Special care may be needed. Patients over 65 years old may have a stronger reaction and need a smaller dose. What side effects may I notice from receiving this medicine? Side effects that you should report to your doctor or health child care assistant as soon as possible: allergic reactions like skin rash, itching or hives, swelling of the face, lips, or tongue breathing difficulties, wheezing confusion light headedness or fainting spells severe stomach pain yellowing of the skin or the whites of the eyes Side effects that usually do not require medical attention (report to your doctor or health child care assistant if they continue or are bothersome): dizziness drowsiness nausea vomiting What may interact with this medicine? alcohol antihistamines barbiturates like amobarbital, butalbital, butabarbital, methohexital, pentobarbital, phenobarbital, thiopental, and secobarbital benztropine drugs for bladder problems like solifenacin, trospium, oxybutynin, tolterodine, hyoscyamine, and methscopolamine drugs for breathing problems like ipratropium and tiotropium drugs for certain stomach or intestine problems like propantheline, homatropine methylbromide, glycopyrrolate, atropine, belladonna, and dicyclomine general anesthetics like etomidate, ketamine, nitrous oxide, propofol, desflurane, enflurane, halothane, isoflurane, and sevoflurane medicines for depression, anxiety, or psychotic disturbances medicines for sleep muscle relaxants naltrexone narcotic medicines (opiates) for pain phenothiazines like perphenazine, thioridazine, chlorpromazine, mesoridazine, fluphenazine, prochlorperazine, promazine, and trifluoperazine scopolamine tramadol trihexyphenidyl What if I miss a dose? If you miss a dose, take it as soon as you can. If it is almost time for your next dose, take only that dose. Do not take double or extra doses. Where should I keep my medicine? Keep out of the reach of children. This medicine can be abused. Keep your medicine in a safe place to protect it from theft. Do not share this medicine with anyone. Selling or giving away this medicine is dangerous and against the law. Store at room temperature between 20 and 25 degrees C (68 and 77 degrees F). Keep container tightly closed. Protect from light. This medicine may cause accidental overdose and if it is taken by other adults, children, or pets. Flush any unused medicine down the toilet to reduce the chance of harm. Do not use the medicine after the expiration date. What should I tell my health care provider before I take this medicine? They need to know if you have any of these conditions: brain tumor Crohn's disease, inflammatory bowel disease, or ulcerative colitis drink more than 3 alcohol containing drinks per day drug abuse or addiction head injury heart or circulation problems kidney disease or problems going to the bathroom liver disease lung disease, asthma, or breathing problems an unusual or allergic reaction to acetaminophen, oxycodone, other opioid analgesics, other medicines, foods, dyes, or preservatives or trying to get breast-feeding What should I watch for while using this medicine? Tell your doctor or health child care assistant if your pain does not go away, if it gets worse, or if you have new or a different type of pain. You may develop tolerance to the medicine. Tolerance means that you will need a higher dose of the medication for pain relief. Tolerance is normal and is expected if you take this medicine for a long time. Do not suddenly stop taking your medicine because you may develop a severe reaction. Your body becomes used to the medicine. This does NOT mean you are addicted. Addiction is a behavior related to getting and using a drug for a non-medical reason. If you have pain, you have a medical reason to take pain medicine. Your doctor will tell you how much medicine to take. If your doctor wants you to stop the medicine, the dose will be slowly lowered over time to avoid any side effects. You may get drowsy or dizzy. Do not drive, use machinery, or do anything that needs mental alertness until you know how this medicine affects you. Do not stand or sit up quickly, especially if you are an older patient. This reduces the risk of dizzy or fainting spells. Alcohol may interfere with the effect of this medicine. Avoid alcoholic drinks. There are different types of narcotic medicines (opiates) for pain. If you take more than one type at the same time, you may have more side effects. Give your health care provider a list of all medicines you use. Your doctor will tell you how much medicine to take. Do not take more medicine than directed. Call emergency for help if you have problems breathing. The medicine will cause constipation. Try to have a bowel movement at least every 2 to 3 days. If you do not have a bowel movement for 3 days, call your doctor or health child care assistant. Do not take Tylenol (acetaminophen) or medicines that have acetaminophen with this medicine. Too much acetaminophen can be very dangerous. Many nonprescription medicines contain acetaminophen. Always read the labels carefully to avoid taking more acetaminophen. You have been given the following additional information: Dental Pain Dental Cavity Tooth Abscess Dental Pain Oxycodone Hydrochloride, Acetaminophen Oral tablet (Electronically signed by Tyrese Ashford MD 12/07/2016 23:30)
--- NOTE | 2016-12-07 23:30 | ED MAR SUMMARY ---
..... Medication Administration Record [facility] [address] [place] [address] Patient: TESSIE CONRAD Visit ID: [id number] 41y, M Weight: 97.0 kg Height/Length: 72 in BMI: 29 ALLERGIES: Penicillin Given 00:12/05/2016 Aleks Julio RJozefNJozef Medication Administered: OXYCODONE-APAP [PO] (OXYCODONE-ACETAMINOPHEN), Dose: 2 tab 5/325 mg Tablets PO. Medication Ordered: Oxycodone-APAP PO 10/650 mg (NOW). Given :12/05/2016 Aleks Julio, RJozefN. Medication Administered: CLEOCIN [PO] (CLINDAMYCIN HCL), Dose: 300 mg Capsules PO. Medication Ordered: Cleocin PO 300 mg (NOW).
== END 2016-12-05 00:40 | disposition home or self-care (01) ==
LOC: ED SRH 23:15
DX: K08.89 Other specified disorders of teeth and supporting structures (principal); K02.9 Dental caries, unspecified; E11.9 Type 2 diabetes mellitus without complications; Z79.4 Long term (current) use of insulin; Z79.82 Long term (current) use of aspirin; Z79.899 Other long term (current) drug therapy; Z88.0 Allergy status to penicillin

== ENCOUNTER 2016-12-08 22:51 | Emergency (ER) | payer OTHER ==
--- NOTE | 2016-12-08 23:41 | ED CLINICAL REPORT ---
Clinical Report - Physicians/Mid Levels [facility] [address] [place] [address] 12/08/2016 22:52 Patient: TESSIE CONRAD Time Seen: 23:28. Arrived- By private vehicle. Historian- patient. HISTORY OF PRESENT ILLNESS Chief Complaint: DENTAL PAIN. This started several days ago and is still present. Pain described as moderate. No sore throat, mouth sores, nasal discharge or congestion or ear pain. No swollen jaw or face, jaw pain or facial pain. He has had toothache. (Pt states he has been on Keflex in the past, and that worked better.). Similar symptoms previously: Recent medical care: Not recently seen/assessed. REVIEW OF SYSTEMS No fever, eye discomfort, cough, difficulty breathing or chest pain. No nausea, diarrhea, abdominal pain, difficulty with urination or headache. No fainting episodes, joint pain, skin rash, enlarged lymph nodes or vomiting. All systems otherwise negative, except as recorded above. PAST HISTORY Problems: Asthma. Bronchitis. Unstable Angina. Tendonitis. Depression. Dental Pain. Tinea Corporis. Gastroesophageal Reflux. Tetanus Status. Diabetes Mellitus. Immunizations. Additional Surgeries: Skin growth removed on scalp. Medications: Omeprazole Oral. Simvastatin Oral. Aspirin Oral. Lantus Subcutaneous. NovoLOG Subcutaneous. Allergies: Penicillin. SOCIAL HISTORY Smoker- current status unknown. No alcohol use or drug use. ADDITIONAL NOTES The nursing notes have been reviewed. PHYSICAL EXAM Vital Signs: 12/08/2016 22:58 BP: 152/89. HR: 78. RR: 16. O2 saturation: 99%. Temp: 98 F. Have been reviewed. Appearance: Alert. No acute distress. Head: Normal external inspection. Eyes: Pupils equal, round and reactive to light. Conjunctivae and eyelids normal. ENT: Severe, localized dental decay. Nose normal. Pharynx normal. Lips normal. Gums normal. No trismus present. Uvula midline. Neck: Normal inspection. No adenopathy. Respiratory: No respiratory distress. Skin: Normal skin color. No rash. Normal skin turgor. Extremities: Extremities exhibit normal ROM. Extremities nontender. Neuro: (Grossly normal.). LABS, X-RAYS, AND EKG Pulse Oximetry: 12/08/2016 22:58 O2 saturation: 99%. Interpretation: normal. PROGRESS AND PROCEDURES Course of Care: Pt was given Keflex and Toradol in the ED, and advised that he needs to see a dentist as soon as possible. He has been advised in this way in the past, and still has not done so. I have informed him of the dental walk-in at [facility], which he should go to first thing in the morning. Patient counseled in person regarding the patient's stable condition, diagnosis and need for follow-up. Concerns were addressed. Old medical records reviewed. Disposition: Discharged. Condition: stable and improved. CLINICAL IMPRESSION Moderate dental pain. INSTRUCTIONS Drink plenty of fluids. Warnings: GENERAL WARNINGS: Return or contact your physician immediately if your condition worsens or changes unexpectedly, if not improving as expected, or if other problems arise. Your Current Medications: CONTINUE TAKING THE FOLLOWING MEDICATIONS: Aspirin Oral. Lantus Subcutaneous. NovoLOG Subcutaneous. Omeprazole Oral. Simvastatin Oral. Prescription Medications: Keflex 500 mg: take 1 capsule orally every 6 hours for 7 days. No refill. Substitution is permissible. Follow-up: Follow up with a dentist You may go to the [facility] at 7:00 in the morning for faster care (right across the hospital parking lot). Call for the next available appointment. Understanding of the discharge instructions verbalized by patient. (Electronically signed by Jane Herrera MD 12/13/2016 15:03)
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
--- NOTE | 2016-12-08 23:41 | ED ORDER SUMMARY ---
..... Patient: TESSIE CONRAD OrderSheet [facility] VisitID: [id number] [address] [place] [address] 41y, M Registration Date/Time: 12/08/2016 ORDER SHEET Weight: 97.0 kg Allergies: Penicillin GENERAL ORDERS: MEDICATION ORDERS: Toradol IM 60 mg (NOW) (23:36 12/08/2016 Susan ALVAREZ) (Ack 23:38 HSoule) (23:50 HSoule) Keflex PO 500 mg (NOW) (23:36 12/08/2016 Susan ALVAREZ) (Ack 23:38 HSoule) (23:50 HSoule) IV FLUIDS: ORDER SHEET NOTES: [Electronically signed by Amelia Florez (00:03 12/09/2016)] [Electronically signed by Jane Herrera MD (15:03 12/13/2016)] [Electronically locked/signed by Amelia Florez (00:03 12/09/2016)]
--- NOTE | 2016-12-08 23:41 | ED ORDER SUMMARY ---
..... Patient: TESSIE CONRAD OrderSheet [facility] VisitID: [id number] [address] [place] [place] [address] 41y, M Registration Date/Time: 12/08/2016 ORDER SHEET Weight: 97.0 kg Allergies: Penicillin GENERAL ORDERS: MEDICATION ORDERS: Toradol IM 60 mg (NOW) (23:36 12/08/2016 Susan ALVAREZ) (Ack 23:38 HSoule) (23:50 HSoule) Keflex PO 500 mg (NOW) (23:36 12/08/2016 Susan ALVAREZ) (Ack 23:38 HSoule) (23:50 HSoule) IV FLUIDS: ORDER SHEET NOTES: [Electronically signed by Amelia Florez (00:03 12/09/2016)] [Electronically signed by Jane Herrera MD (15:03 12/13/2016)] [Electronically locked/signed by Amelia Florez (00:03 12/09/2016)]
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
--- NOTE | 2016-12-08 23:41 | ED CLINICAL REPORT ---
Clinical Report - Physicians/Mid Levels [facility] [address] [address] 12/08/2016 22:52 Patient: TESSIE CONRAD Time Seen: 23:28. Arrived- By private vehicle. Historian- patient. HISTORY OF PRESENT ILLNESS Chief Complaint: DENTAL PAIN. This started several days ago and is still present. Pain described as moderate. No sore throat, mouth sores, nasal discharge or congestion or ear pain. No swollen jaw or face, jaw pain or facial pain. He has had toothache. (Pt states he has been on Keflex in the past, and that worked better.). Similar symptoms previously: Recent medical care: Not recently seen/assessed. REVIEW OF SYSTEMS No fever, eye discomfort, cough, difficulty breathing or chest pain. No nausea, diarrhea, abdominal pain, difficulty with urination or headache. No fainting episodes, joint pain, skin rash, enlarged lymph nodes or vomiting. All systems otherwise negative, except as recorded above. PAST HISTORY Problems: Asthma. Bronchitis. Unstable Angina. Tendonitis. Depression. Dental Pain. Tinea Corporis. Gastroesophageal Reflux. Tetanus Status. Diabetes Mellitus. Immunizations. Additional Surgeries: Skin growth removed on scalp. Medications: Omeprazole Oral. Simvastatin Oral. Aspirin Oral. Lantus Subcutaneous. NovoLOG Subcutaneous. Allergies: Penicillin. SOCIAL HISTORY Smoker- current status unknown. No alcohol use or drug use. ADDITIONAL NOTES The nursing notes have been reviewed. PHYSICAL EXAM Vital Signs: 12/08/2016 22:58 BP: 152/89. HR: 78. RR: 16. O2 saturation: 99%. Temp: 98 F. Have been reviewed. Appearance: Alert. No acute distress. Head: Normal external inspection. Eyes: Pupils equal, round and reactive to light. Conjunctivae and eyelids normal. ENT: Severe, localized dental decay. Nose normal. Pharynx normal. Lips normal. Gums normal. No trismus present. Uvula midline. Neck: Normal inspection. No adenopathy. Respiratory: No respiratory distress. Skin: Normal skin color. No rash. Normal skin turgor. Extremities: Extremities exhibit normal ROM. Extremities nontender. Neuro: (Grossly normal.). LABS, X-RAYS, AND EKG Pulse Oximetry: 12/08/2016 22:58 O2 saturation: 99%. Interpretation: normal. PROGRESS AND PROCEDURES Course of Care: Pt was given Keflex and Toradol in the ED, and advised that he needs to see a dentist as soon as possible. He has been advised in this way in the past, and still has not done so. I have informed him of the dental walk-in at [facility], which he should go to first thing in the morning. Patient counseled in person regarding the patient's stable condition, diagnosis and need for follow-up. Concerns were addressed. Old medical records reviewed. Disposition: Discharged. Condition: stable and improved. CLINICAL IMPRESSION Moderate dental pain. INSTRUCTIONS Drink plenty of fluids. Warnings: GENERAL WARNINGS: Return or contact your physician immediately if your condition worsens or changes unexpectedly, if not improving as expected, or if other problems arise. Your Current Medications: CONTINUE TAKING THE FOLLOWING MEDICATIONS: Aspirin Oral. Lantus Subcutaneous. NovoLOG Subcutaneous. Omeprazole Oral. Simvastatin Oral. Prescription Medications: Keflex 500 mg: take 1 capsule orally every 6 hours for 7 days. No refill. Substitution is permissible. Follow-up: Follow up with a dentist You may go to the [facility] Walk-in [facility] at 7:00 in the morning for faster care (right across the hospital parking lot). Call for the next available appointment. Understanding of the discharge instructions verbalized by patient. (Electronically signed by Jane Herrera MD 12/13/2016 15:03)
--- NOTE | 2016-12-13 15:04 | ED MAR SUMMARY ---
..... Medication Administration Record [facility] [address] [place] [address] Patient: TESSIE CONRAD Visit ID: [id number] 41y, M Weight: 97.0 kg Height/Length: 73 in BMI: 28.2 ALLERGIES: Penicillin Given 23:45 12/08/2016 Amelia Florez, Medication Administered: TORADOL [IM] (KETOROLAC TROMETHAMINE), Dose: 60 mg IM. Medication Ordered: Toradol IM 60 mg (NOW). Given 23:45 12/08/2016 Amelia Florez, Medication Administered: KEFLEX [PO] (CEPHALEXIN), Dose: 500 mg Capsules PO. Medication Ordered: Keflex PO 500 mg (NOW).
--- NOTE | 2016-12-13 15:04 | ED MED RECONCILIATION SUMMARY ---
Patient: TESSIE CONRAD Medication Reconciliation Report [facility] VisitID: [id number] [address] [place] [address] 41y, M Registration Date/Time: 12/08/2016 Weight: 97.0 kg Height/Length: 73 in. BMI: 28.2 ALLERGIES: Penicillin The patient's Home Medications are listed below: CONTINUE TAKING THE FOLLOWING MEDICATIONS: Aspirin Oral Lantus Subcutaneous NovoLOG Subcutaneous Omeprazole Oral Simvastatin Oral The source(s) of the original Home Medication information: Not obtained. The following Medications were given to the patient in the Emergency Department: Toradol [IM] IM 60 mg, administered: 12/08/2016 11:45:00 PM Keflex [PO] PO 500 mg, administered: 12/08/2016 11:45:00 PM The following Medications were prescribed to the patient: Keflex 500 mg: take 1 capsule orally every 6 hours for 7 days. No refill. Substitution is permissible. -- Jane Herrera MD
--- NOTE | 2016-12-13 15:04 | ED DISCHARGE INSTRUCTIONS ---
Patient: TESSIE CONRAD General Instructions [facility] VisitID: [id number] [place] [address] 41y, M Registration Date/Time: 12/08/2016 Moderate dental pain. INSTRUCTIONS Drink plenty of fluids. Warnings: GENERAL WARNINGS: Return or contact your physician immediately if your condition worsens or changes unexpectedly, if not improving as expected, or if other problems arise. Your Current Medications: CONTINUE TAKING THE FOLLOWING MEDICATIONS: Aspirin Oral. Lantus Subcutaneous. NovoLOG Subcutaneous. Omeprazole Oral. Simvastatin Oral. Prescription Medications: Keflex 500 mg: take 1 capsule orally every 6 hours for 7 days. No refill. Substitution is permissible. Follow-up: Follow up with a dentist You may go to the [facility] at 7:00 in the morning for faster care (right across the hospital parking lot). Call for the next available appointment. Understanding of the discharge instructions verbalized by patient. (Electronically signed by Jane Herrera MD 12/13/2016 15:03)
--- NOTE | 2016-12-13 15:04 | ED DISCHARGE INSTRUCTIONS ---
Patient: TESSIE CONRAD General Instructions [facility] VisitID: [id number] [place] [address] 41y, M Registration Date/Time: 12/08/2016 Moderate dental pain. INSTRUCTIONS Drink plenty of fluids. Warnings: GENERAL WARNINGS: Return or contact your physician immediately if your condition worsens or changes unexpectedly, if not improving as expected, or if other problems arise. Your Current Medications: CONTINUE TAKING THE FOLLOWING MEDICATIONS: Aspirin Oral. Lantus Subcutaneous. NovoLOG Subcutaneous. Omeprazole Oral. Simvastatin Oral. Prescription Medications: Keflex 500 mg: take 1 capsule orally every 6 hours for 7 days. No refill. Substitution is permissible. Follow-up: Follow up with a dentist You may go to the [facility] Walk[facility]in [facility] at 7:00 in the morning for faster care (right across the hospital parking lot). Call for the next available appointment. Understanding of the discharge instructions verbalized by patient. (Electronically signed by Jane Herrera MD 12/13/2016 15:03)
--- NOTE | 2016-12-13 15:04 | ED MED RECONCILIATION SUMMARY ---
Patient: TESSIE CONRAD Medication Reconciliation Report [facility] VisitID: [id number] [address] [place] [address] 41y, M Registration Date/Time: 12/08/2016 Weight: 97.0 kg Height/Length: 73 in. BMI: 28.2 ALLERGIES: Penicillin The patient's Home Medications are listed below: CONTINUE TAKING THE FOLLOWING MEDICATIONS: Aspirin Oral Lantus Subcutaneous NovoLOG Subcutaneous Omeprazole Oral Simvastatin Oral The source(s) of the original Home Medication information: Not obtained. The following Medications were given to the patient in the Emergency Department: Toradol [IM] IM 60 mg, administered: 12/08/2016 11:45:00 PM Keflex [PO] PO 500 mg, administered: 12/08/2016 11:45:00 PM The following Medications were prescribed to the patient: Keflex 500 mg: take 1 capsule orally every 6 hours for 7 days. No refill. Substitution is permissible. -- Jane Herrera MD
--- NOTE | 2016-12-13 15:04 | ED MAR SUMMARY ---
..... Medication Administration Record [facility] [address] [place] [address] Patient: TESSIE CONRAD Visit ID: [id number] 41y, M Weight: 97.0 kg Height/Length: 73 in BMI: 28.2 ALLERGIES: Penicillin Given 23:45 12/08/2016 Amelia Florez, Medication Administered: TORADOL [IM] (KETOROLAC TROMETHAMINE), Dose: 60 mg IM. Medication Ordered: Toradol IM 60 mg (NOW). Given 23:45 12/08/2016 Amelia Florez, Medication Administered: KEFLEX [PO] (CEPHALEXIN), Dose: 500 mg Capsules PO. Medication Ordered: Keflex PO 500 mg (NOW).
== END 2016-12-08 23:45 | disposition home or self-care (01) ==
LOC: ED SRH 22:51
DX: K08.89 Other specified disorders of teeth and supporting structures (principal); E11.9 Type 2 diabetes mellitus without complications; K21.9 Gastro-esophageal reflux disease without esophagitis; Z79.82 Long term (current) use of aspirin; Z88.0 Allergy status to penicillin; Z79.899 Other long term (current) drug therapy; Z79.4 Long term (current) use of insulin